=== PATIENT | female | born 1935 | race Caucasian/White ===

== ENCOUNTER 2016-09-15 16:57 | Inpatient (IN) | payer MEDICARE ==
--- NOTE | 2016-09-15 17:14 | ED Physician Chart ---
Chief Complaint/HPI - Patient Information Date Seen:: 09/15/16 Time Seen:: 17:09 Chief Complaint:: psych issue History of Present Illness:: pt was released from a board n care today...was dropped off at the curb of her old house. pt required firefighters from across the street to brayden her into her house due to physical disability...she was unable to climb stairs on her own. she had no food in the house that wasnt rotten. no bed or working toilet on 1st floor. no working heat. house is in poor condition. pt has no-one to help care for her and was signed on a psych hold by police after they determined she is unable to care for herself. only PMH listed is arthritis Allergies:: Allergies Allergy/AdvReac Type Severity Reaction Status Date / Time No Known Allergies Allergy Verified 09/15/16 16:58 Vitals:: Vital Signs - 8 hr 09/15/16 16:59 Temp 98.6 F HR 98 RR 16 BP 137/73 O2 Sat % 96 Historian:: Patient Review of Systems - Review of Systems General/Constitutional: No fever, No chills, No weight loss, No weakness, No diaphoresis, No edema, No loss of appetite Skin: No skin lesions, No rash, No bruising Head: No headache, No light-headedness Eyes: No loss of vision, No pain, No diplopia ENT: No earache, No nasal drainage, No sore throat, No tinnitus Neck: No neck pain, No swelling, No thyromegaly, No stiffness, No mass noted Cardio Vascular: No chest pain, No palpitations, No PND, No orthopnea, No edema Pulmonary: No SOB, No cough, No sputum, No wheezing GI: No nausea, No vomiting, No diarrhea, No pain, No melena, No hematochezia, No constipation, No hematemesis G/U: No dysuria, No frequency, No hematuria Musculoskeletal: No bone or joint pain, No back pain, No muscle pain Endocrine: No polyuria, No polydipsia Psychiatric: No prior psych history, No depression, No anxiety, No suicidal ideation Hematopoietic: No bruising, No lymphadenopathy Allergic/Immuno: No urticaria, No angioedema Neurological: No syncope, No focal symptoms, No weakness, No paresthesia, No headache, No seizure, No dizziness, No confusion, No vertigo Past Medical History - Past Medical History Past Medical History: Arthritis, Other (no known hx of cad/cva/htn/lipids/ dm...per pt) Social History: Care Facility (recent release today from [facility]) Medication: Reviewed Family Medical History - Family Member Mother History Unknown: Yes Physical Exam - Physical Examination General/Constitutional: Awake, Well-developed, well-nourished, Alert, No distress, GCS 15, Non-toxic appearing, Ambulatory Other Gen/Cons comments:: alert, talkative. very very slow gait w using walker..seems very unlikely pt could do steps wo assistance sev kyphosis Head: Atraumatic Eyes: Lids, conjuctiva normal, PERRL, EOMI Skin: Nl inspection, No rash, No skin lesions, No ecchymosis, Well hydrated, No lymphadenopathy ENMT: External ears, nose nl, Nasal exam nl, Lips, teeth, gums nl Neck: Nontender, Full ROM w/o pain, No JVD, No nuchal rigidity, No bruit, No mass, No stridor Respiratory: Nl effort/Exclusion, Clear to Auscultation, No Wheeze/Rhonchi/Rales Cardio Vascular: RRR, No murmur, gallop, rubs, NL S1 S2 GI: No tenderness/rebounding/guarding, No organomegaly, No hernia, Normal BS's, Nondistended, No mass/bruits, No McBurney tenderness : No CVA tenderness Extremities: No tenderness or effusion, Full ROM, normal strength in all extremities, No edema, Normal digits & nails Neuro/Psych: Alert/oriented, DTR's symmetric, Normal sensory exam, Normal motor strength, Judgement/insight normal, Mood normal, Normal gait, No focal deficits Misc: normal gait, Normal back, No paraspinal tenderness Labs/Radiology/EKG Results - Lab Results Results: Laboratory Tests 09/15/16 09/15/16 09/15/16 17:00 17:41 17:41 WBC 9.2 RBC 4.51 Hgb 13.4 Hct 40.8 MCV 90.5 MCH 29.8 MCHC Differential 32.9 RDW 13.2 Plt Count 246 MPV 7.5 Neutrophils % 83.0 H Lymphocytes % 13.2 L Monocytes % 2.7 Eosinophils % 0.3 Basophils % 0.8 Sodium 135 L Potassium 4.0 Chloride 109 H Carbon Dioxide 23.7 Anion Gap 6.3 L BUN 30 H Creatinine 0.6 Est GFR ( Amer) TNP Est GFR (Non-Af Amer) TNP BUN/Creatinine Ratio 50.0 Glucose 123 H Calcium 10.3 Total Bilirubin 0.5 AST 20 ALT 11 Alkaline Phosphatase 107 H Troponin I Total Protein 7.5 Albumin 4.4 Globulin 3.1 Albumin/Globulin Ratio 1.4 Triglycerides 94 Cholesterol 259 H LDL Cholesterol Direct 114 HDL Cholesterol 114 H TSH Urine Source CLEAN C Urine Color YELLOW Urine Clarity CLEAR Urine pH 7.0 Ur Specific [place] 1.020 Urine Protein 30 H Urine Glucose (UA) NEGATIVE Urine Ketones NEGATIVE Urine Blood NEGATIVE Urine Nitrate NEGATIVE Urine Bilirubin NEGATIVE Urine Urobilinogen 0.2 Ur Leukocyte Esterase SMALL H Urine RBC NONE SEEN Urine WBC 2-5 Ur Epithelial Cells NONE SEEN Urine Bacteria NONE SEEN 09/15/16 09/15/16 17:41 17:41 WBC RBC Hgb Hct MCV MCH MCHC Differential RDW Plt Count MPV Neutrophils % Lymphocytes % Monocytes % Eosinophils % Basophils % Sodium Potassium Chloride Carbon Dioxide Anion Gap BUN Creatinine Est GFR ( Amer) Est GFR (Non-Af Amer) BUN/Creatinine Ratio Glucose Calcium Total Bilirubin AST ALT Alkaline Phosphatase Troponin I < 0.01 L Total Protein Albumin Globulin Albumin/Globulin Ratio Triglycerides Cholesterol LDL Cholesterol Direct HDL Cholesterol TSH 0.82 Urine Source Urine Color Urine Clarity Urine pH Ur Specific [place] Urine Protein Urine Glucose (UA) Urine Ketones Urine Blood Urine Nitrate Urine Bilirubin Urine Urobilinogen Ur Leukocyte Esterase Urine RBC Urine WBC Ur Epithelial Cells Urine Bacteria - EKG Interpretations EKG Time:: 17:30 Rhythm: nsr [place]: -44 Rate: 94 Comments:: RtBBB ED Septic Shock - . Is Septic Shock (SBP<90, OR Lactate>4 mmol\L) present?: No - <6hrs of presentation: Vital Signs: Vital Signs - 8 hr 09/15/16 16:59 Temp 98.6 F HR 98 RR 16 BP 137/73 O2 Sat % 96 Reassessment (Disposition) - Reassessment Reassessment:: case rita macias...will admit Reassessment Condition:: Unchanged - Diagnosis Diagnosis:: 1 uti 2 unable to care for self at home 3 arthritis - Patient Disposition Admitted to:: Med/Surg Condition at Disposition:: Unchanged ED Discharge Plan - Patient Disposition Instructions: Psychosis
[2016-09-15 17:40] LABS: URINE BILIRUBIN NEGATIVE (NEGATIVE); URINE BLOOD NEGATIVE (NEGATIVE); URINE COLOR YELLOW; URINE GLUCOSE (UA) NEGATIVE (NEGATIVE); URINE KETONE NEGATIVE (NEGATIVE)
[2016-09-15 17:41] LABS: URINE BACTERIA NONE SEEN /hpf (NONE SEEN); URINE EPITHELIAL CELLS NONE SEEN /lpf (FEW); URINE PROTEIN 30 mg/dL (NEGATIVE); URINE RBC NONE SEEN /hpf (0-5); URINE UROBILINOGEN 0.2 E.U./dL (0.2 - 1.0)
[2016-09-15 17:50] LABS: % BASOPHILS 0.8 % (0.0-2.0); % EOSINOPHILS 0.3 % (0.0-5.0); % LYMPHOCYTES 13.2 % (20.0-50.0); % MONOCYTES 2.7 % (2.0-10.0); HEMATOCRIT 40.8 % (35.0-45.0); HEMOGLOBIN 13.4 gm/dL (11.7-16.1); MEAN CELL VOLUME 90.5 fl (81-100); MEAN CORPUSCULAR HEMOGLOBIN 29.8 pg (27.0-31.0); MEAN CORPUSCULAR HGB CONC 32.9 pg (28.0-36.0); MEAN PLATELET VOLUME 7.5 fl; NEUTROPHILE ABSOLUTE 7.7 Th/cmm (1.8-8.0); PLATELET COUNT 246 Th/cmm (150-400); RED BLOOD COUNT 4.51 Mil/cmm (3.80-5.20); RED CELL DISTRIBUTION WIDTH 13.2 % (11.5-20.0); WHITE BLOOD COUNT 9.2 Th/cmm (4.8-10.8)
[2016-09-15 18:02] LABS: ANION GAP 6.3 (7.0-16.0); BUN - UREA NITROGEN 30 mg/dL (7-25); CARBON DIOXIDE 23.7 mEq/L (21.0-31.0); CHLORIDE 109 mEq/L (98-107); CREATININE - SERUM 0.6 mg/dL (0.6-1.2); GLUCOSE 123 mg/dL (70-105); SODIUM SERUM 135 mEq/L (136-145)
[2016-09-15 18:03] LABS: ALB/GLOB RATIO 1.4 (1.0-1.8); ALKALINE PHOSPHATASE 107 U/L (34-104); BILIRUBIN,TOTAL 0.5 mg/dL (0.3-1.0); CALCIUM SERUM 10.3 mg/dL (8.6-10.3); CHOLESTEROL 259 mg/dL (<200); SGOT 20 U/L (13-39); SGPT/ALT 11 U/L (7-52); TRIGLYCERIDES 94 mg/dL (<150)
--- NOTE | 2016-09-15 20:41 | Admit Criteria Form ---
Admit Criteria Forms - Admit Criteria Diagnosis: PSYCHIATRIC DISORDERS Clinical Indications for Inpatient Care (Place 'X' for any and all applicable criteria): Ongoing inpatient care may be needed for ANY ONE of the following(1)(2)(3)(4)(6) (7)(8): [ ]I. Danger to self or others not manageable at lower level of care. [X]II. Grave disability (eg, inability to perform self care necessary at lower level of care) [ ]III. Agitation or inappropriate behavior interfering with care for primary condition (eg, attempting to discontinue lines or drains prematurely, unable to cooperate with respiratory care) [ ]IV. Severe disability or disorder indicated by ALL of the following: [ ]a) Severe behavioral health disorder-related symptoms or condition indicated by ANY ONE of the following: [ ]i) Severe problem with cognition, memory, judgment, or impulse control [ ]ii) Severe clinical manifestations (eg, hallucinations, delusions, other acute psychotic symptoms, dagmar, extreme agitation or anxiety) [ ]b) Patient management at lower level of care is not feasible until acute intervention or modification is initiated. Extended stay beyond goal length of stay for the primary condition may be indicated when ANY ONE of the following is present: (1)(2)(3)(4): [ ]a) Patient is a danger to self or others and not manageable at lower level of care. [ ]b) Behavior crisis management, including physical or chemical restraints, is required and is not available at a lower level of care. [ ]c) Behavioral symptoms (e.g., agitation, somnolence, inappropriate behavior) are present, and are not manageable at a lower level of care. [ ]d) Patient cannot understand follow-up treatment and crisis plan. [ ]e) Provider and supports are not sufficiently available at lower level of care. [ ]f) Patient cannot participate (e.g., verify absence of plan for harm) and is in needed of monitoring. The original [facility] [employer] content created by [facility] [employer] has been revised. The portions of the content which have been revised are identified through the use of italic text or in bold, and [facility] has neither reviewed nor approved the modified material. All other unmodified content is copyright [facility] [employer]. Please see references footnoted in the original [facility] edition 2016 Admit Criteria Met?: Yes
[2016-09-15 22:05] VITALS: BP 118/61
[2016-09-16 06:20] LABS: % BASOPHILS 0.6 % (0.0-2.0); % EOSINOPHILS 1.5 % (0.0-5.0); % LYMPHOCYTES 31.6 % (20.0-50.0); % MONOCYTES 10.9 % (2.0-10.0); % NEUTROPHILS 55.4 % (40.0-80.0); HEMOGLOBIN 11.5 gm/dL (11.7-16.1); MEAN CELL VOLUME 89.3 fl (81-100); MEAN CORPUSCULAR HEMOGLOBIN 30.8 pg (27.0-31.0); MEAN CORPUSCULAR HGB CONC 34.4 pg (28.0-36.0); MEAN PLATELET VOLUME 7.7 fl; NEUTROPHILE ABSOLUTE 4.4 Th/cmm (1.8-8.0); PLATELET COUNT 219 Th/cmm (150-400); RED BLOOD COUNT 3.74 Mil/cmm (3.80-5.20); RED CELL DISTRIBUTION WIDTH 13.4 % (11.5-20.0); WHITE BLOOD COUNT 7.7 Th/cmm (4.8-10.8)
[2016-09-16 06:21] LABS: HEMATOCRIT 33.4 % (35.0-45.0)
[2016-09-16 06:25] LABS: ALB/GLOB RATIO 1.5 (1.0-1.8); ALKALINE PHOSPHATASE 82 U/L (34-104); ANION GAP 8.8 (7.0-16.0); BILIRUBIN,TOTAL 0.5 mg/dL (0.3-1.0); BUN - UREA NITROGEN 34 mg/dL (7-25); BUN/CREATININE RATIO 56.7; CALCIUM SERUM 9.6 mg/dL (8.6-10.3); CHLORIDE 109 mEq/L (98-107); CREATININE - SERUM 0.6 mg/dL (0.6-1.2); GLUCOSE 98 mg/dL (70-105); POTASSIUM SERUM 3.8 mEq/L (3.5-5.1); SGOT 14 U/L (13-39); SGPT/ALT 10 U/L (7-52); SODIUM SERUM 140 mEq/L (136-145)
[2016-09-16] MEDS ORDERED: VTE Chemical Prophylaxis Screen/Admission MC PRN (08:30)
[2016-09-16] MEDS ORDERED: Non-Formulary Item 1 EA (Meloxicam [Meloxicam] 15 MG) PO SCH (09:00)
[2016-09-16] MEDS ORDERED: Multivitamin Tab PO SCH (09:00)
--- NOTE | 2016-09-16 09:00 | General Progress Note ---
Subjective - Review of Systems Service Date: 09/16/16 Subjective: I am fine Objective - Results Result Diagrams: 09/16/16 05:50 09/16/16 05:50 Recent Labs: Laboratory Last Values WBC 7.7 Th/cmm (4.8-10.8) 09/16/16 05:50 RBC 3.74 Mil/cmm (3.80-5.20) L 09/16/16 05:50 Hgb 11.5 gm/dL (11.7-16.1) L 09/16/16 05:50 Hct 33.4 % (35.0-45.0) L D 09/16/16 05:50 MCV 89.3 fl (81-100) 09/16/16 05:50 MCH 30.8 pg (27.0-31.0) 09/16/16 05:50 MCHC Differential 34.4 pg (28.0-36.0) 09/16/16 05:50 RDW 13.4 % (11.5-20.0) 09/16/16 05:50 Plt Count 219 Th/cmm (150-400) 09/16/16 05:50 MPV 7.7 fl 09/16/16 05:50 Neutrophils % 55.4 % (40.0-80.0) 09/16/16 05:50 Lymphocytes % 31.6 % (20.0-50.0) 09/16/16 05:50 Monocytes % 10.9 % (2.0-10.0) H 09/16/16 05:50 Eosinophils % 1.5 % (0.0-5.0) 09/16/16 05:50 Basophils % 0.6 % (0.0-2.0) 09/16/16 05:50 Sodium 140 mEq/L (136-145) 09/16/16 05:50 Potassium 3.8 mEq/L (3.5-5.1) 09/16/16 05:50 Chloride 109 mEq/L (98-107) H 09/16/16 05:50 Carbon Dioxide 26.0 mEq/L (21.0-31.0) 09/16/16 05:50 Anion Gap 8.8 (7.0-16.0) 09/16/16 05:50 BUN 34 mg/dL (7-25) H 09/16/16 05:50 Creatinine 0.6 mg/dL (0.6-1.2) 09/16/16 05:50 Est GFR ( Amer) TNP 09/16/16 05:50 Est GFR (Non-Af Amer) TNP 09/16/16 05:50 BUN/Creatinine Ratio 56.7 09/16/16 05:50 Glucose 98 mg/dL (70-105) 09/16/16 05:50 Calcium 9.6 mg/dL (8.6-10.3) 09/16/16 05:50 Total Bilirubin 0.5 mg/dL (0.3-1.0) 09/16/16 05:50 AST 14 U/L (13-39) 09/16/16 05:50 ALT 10 U/L (7-52) 09/16/16 05:50 Alkaline Phosphatase 82 U/L (34-104) 09/16/16 05:50 Troponin I < 0.01 ng/mL (0.01-0.05) L 09/15/16 17:41 Total Protein 6.0 gm/dL (6.0-8.3) 09/16/16 05:50 Albumin 3.6 gm/dL (3.7-5.3) L 09/16/16 05:50 Globulin 2.4 gm/dL 09/16/16 05:50 Albumin/Globulin Ratio 1.5 (1.0-1.8) 09/16/16 05:50 Triglycerides 94 mg/dL (<150) 09/15/16 17:41 Cholesterol 259 mg/dL (<200) H 09/15/16 17:41 LDL Cholesterol Direct 114 mg/dL (75-193) 09/15/16 17:41 HDL Cholesterol 114 mg/dL (23-92) H 09/15/16 17:41 TSH 0.82 uIU/ml (0.34-5.60) 09/15/16 17:41 Urine Source CLEAN C 09/15/16 17:00 Urine Color YELLOW 09/15/16 17:00 Urine Clarity CLEAR (CLEAR) 09/15/16 17:00 Urine pH 7.0 09/15/16 17:00 Ur Specific [place] 1.020 (1.005-1.030) 09/15/16 17:00 Urine Protein 30 mg/dL (NEGATIVE) H 09/15/16 17:00 Urine Glucose (UA) NEGATIVE mg/dL (NEGATIVE) 09/15/16 17:00 Urine Ketones NEGATIVE mg/dL (NEGATIVE) 09/15/16 17:00 Urine Blood NEGATIVE (NEGATIVE) 09/15/16 17:00 Urine Nitrate NEGATIVE (NEGATIVE) 09/15/16 17:00 Urine Bilirubin NEGATIVE (NEGATIVE) 09/15/16 17:00 Urine Urobilinogen 0.2 E.U./dL (0.2 - 1.0) 09/15/16 17:00 Ur Leukocyte Esterase SMALL (NEGATIVE) H 09/15/16 17:00 Urine RBC NONE SEEN /hpf (0-5) 09/15/16 17:00 Urine WBC 2-5 /hpf (0-5) 09/15/16 17:00 Ur Epithelial Cells NONE SEEN /lpf (FEW) 09/15/16 17:00 Urine Bacteria NONE SEEN /hpf (NONE SEEN) 09/15/16 17:00 - Physical Exam Vitals and I&O: Vital Signs Temp 98.3 F 09/16/16 04:00 Pulse 75 09/16/16 04:00 Resp 18 09/16/16 04:00 BP 130/60 09/16/16 04:00 Pulse Ox 97 09/16/16 04:00 Intake & Output 09/15/16 09/16/16 09/16/16 18:59 06:59 18:59 Intake Total 50 Balance 50 Intake: Oral 50 Other: # Voids 2 Stool Characteristics Soft Formed Active Medications: Current Medications Acetaminophen (Tylenol) 325 mg PO Q6HR PRN PRN Reason: Pain or Fever >101 Stop: 11/14/16 22:08 Last Admin: 09/15/16 23:15 Dose: 325 mg Ascorbic Acid (Vitamin C) 500 mg PO DAILY [facility] Stop: 11/15/16 08:59 Diclofenac Sodium (Voltaren) 25 mg PO BID DARREL Stop: 11/15/16 08:59 Heparin Sodium (Porcine) (Heparin) 5,000 units SUBQ Q12HR DARREL Stop: 11/15/16 08:59 Influenza Virus Vaccine (Fluarix) 0.5 ml IM .ONCE ONE Stop: 09/16/16 10:01 Miscellaneous (Vte Chemical Prophylaxis Screen/ Admission) 1 [facility] PRN PRN PRN Reason: PROTOCOL Stop: 11/15/16 08:29 Multivitamins/Vitamin C (Theragran) 1 tab PO DAILY [facility] Stop: 11/15/16 08:59 Pneumococcal Polyvalent Vaccine (Pneumovax) 0.5 ml IM .ONCE ONE Stop: 09/16/16 10:01 Quetiapine Fumarate (Seroquel) 25 mg PO HS DARREL PRN Reason: Protocol Stop: 11/15/16 20:59 Trimethoprim/Sulfamethoxazole (Bactrim Ds) 1 tab PO BID [facility] Stop: 11/15/16 08:59 General: Alert, Oriented x3, Cooperative, No acute distress HEENT: Atraumatic Neck: Supple Cardiovascular: Regular rate Lungs: Clear to auscultation Abdomen: Bowel sounds, Soft Extremities: Other (No edema) Neurological: Normal gait Skin: Other (Warm and dry) Psych/Mental Status: Mental status NL Assessment/Plan - Assessment Assessment: Patient is awke, alert, calm, in no acute distress. Dx: UTI, grave disability. - Plan Plan: Consul with SW and base manager are requested
[2016-09-16] MEDS: Sulfamethoxazole/TMP 800/160mg Tab PO SCH ×2 (09:34→17:00)
[2016-09-16] MEDS ORDERED: Pneumococcal Vaccine 0.5 mL Vial IM ONE (10:00)
[2016-09-16] MEDS ORDERED: Influenza Vaccine 0.5 mL Syr IM ONE (10:00)
[2016-09-16 10:25] LABS: HEP B CORE IGM Negative (Negative); HEP C ANTIBODY <0.1 s/co ratio (0.0-0.9)
--- NOTE | 2016-09-16 14:17 | History & Physical ---
CHIEF COMPLAINT: Safety issues. HISTORY OF PRESENT ILLNESS: This is a case of an 81-year-old female who was discharged from [facility] and care to her home. When the patient was left at home, she could not go in and firefighters to help her to go into the house. When firefighters went into the house, they found that she has had no food. She had walk-in toilet, no bed in the fifth floor and no ____. House was in really poor condition, reason why police was called and police ____ on psychological hold and ____ she was unable to care for herself. PAST MEDICAL HISTORY: The patient has past medical history of arthritis. SOCIAL HISTORY: The patient was recently discharged from a care facility. MEDICATIONS: Reviewed. FAMILY HISTORY: Unremarkable. ALLERGIES: No known allergies. PAST SURGICAL HISTORY: None. REVIEW OF SYSTEMS: LUNGS: The patient denies shortness of breath. HEART: The patient denies chest pain. ABDOMEN: Unremarkable. EXTREMITIES: The patient referred feeling weak and pain in both extremities. PHYSICAL EXAMINATION: GENERAL: Does reveal a fairly nourished and developed female, awake, alert, in no acute distress and ambulatory. LUNGS: Bilateral air entry. No wheezing, no crackles. HEART: Regular rate and rhythm. ABDOMEN: Soft, nontender, bowel sounds present. EXTREMITIES: No edema. Full movement of all extremities. NEUROLOGICAL: The patient is awake, alert, in no acute distress. Normal gait. No focal deficits. IMPRESSION: 1. Urinary tract infection. 2. Unable to care for herself. 3. Osteoarthritis. PLAN: 1. The patient will be admitted in the medical surgical floor. 2. Saline lock. 3. Regular diet. 4. CBC and CMP at a.m. 5. Consult with high school social science teacher. JOB# [id number]
== END 2016-09-16 21:40 | DRG 690 ==
LOC: ER 16:57 → MSI 20:00
PROVIDERS: ADMIT General Practice; ATTEND General Practice
DX: N39.0 Urinary tract infection, site not specified (principal); M19.90 Unspecified osteoarthritis, unspecified site
CPT/HCPCS: 36415-UA; 80053-TC; 80061-TC; 80074-90; 81001-TC; 84443-TC; 84484-TC; 85025-TC; 86592-TC; 90732; 93005; J1644; Z7610

== ENCOUNTER 2016-09-16 21:55 | Inpatient (IN) | payer MEDICARE ==
[2016-09-16 22:34] VITALS: BP 151/76
[2016-09-17] MEDS ORDERED: Maalox 30 mL Cup PO PRN (01:30)
[2016-09-17] MEDS ORDERED: Magnesium Hydroxide (MOM) 30 mL UDC PO PRN (01:32)
--- NOTE | 2016-09-17 08:27 | General Progress Note ---
Subjective - Review of Systems Service Date: 09/17/16 Subjective: I am OK. Objective - Physical Exam Vitals and I&O: Vital Signs Temp 97.9 F 09/16/16 22:20 Pulse 80 09/16/16 22:20 Resp 20 09/16/16 22:20 BP 151/76 09/16/16 22:34 Pulse Ox Active Medications: Current Medications Acetaminophen (Tylenol) 325 mg PO Q6HR PRN PRN Reason: Pain or Fever >101 Stop: 11/16/16 00:39 Al Hydrox/Mg Hydrox/Simethicone (Maalox) 30 ml PO Q4HR PRN PRN Reason: Reyez Stop: 11/16/16 01:29 Ascorbic Acid (Vitamin C) 500 mg PO DAILY [facility] Stop: 11/16/16 08:59 Lorazepam (Ativan) 0.5 mg PO Q6HR PRN; Protocol PRN Reason: Psychosis Stop: 11/16/16 01:08 Magnesium Hydroxide (Milk Of Magnesia) 30 ml PO HS PRN PRN Reason: Constipation Stop: 11/16/16 01:31 Miscellaneous (Meloxicam [Meloxicam]) 15 mg PO DAILY [facility]REL Stop: 11/16/16 08:59 Multivitamins/Vitamin C (Theragran) 1 tab PO DAILY [facility]REL Stop: 11/16/16 08:59 Petrolatum (Vaseline Oint) 1 appl TP TID [facility] Stop: 11/16/16 08:59 Quetiapine Fumarate (Seroquel) 25 mg PO HS DARREL PRN Reason: Protocol Stop: 11/16/16 20:59 General: Alert, Oriented x3, Cooperative, No acute distress HEENT: Atraumatic Neck: Supple Cardiovascular: Regular rate Lungs: Clear to auscultation Abdomen: Bowel sounds Extremities: Other (No ) Neurological: Normal tone (Unstable) Skin: Other (Warm and dry) Psych/Mental Status: Mental status NL Assessment/Plan - Assessment Assessment: Patient is awake, alert, calm, in no acute distress. Patient was admitted while a place is found. - Plan Plan: Will continue with psychiatry recommendations. Awaiting placement.
[2016-09-17] MEDS: Petrolatum (White) Oint 0.6 Oz Tube TP SCH ×3 (08:37→20:43)
[2016-09-17] MEDS: Multivitamin Tab PO SCH (08:37)
[2016-09-17] MEDS ORDERED: Non-Formulary Item 1 EA (Meloxicam [Meloxicam] 15 MG) PO SCH (09:00)
--- NOTE | 2016-09-18 03:19 | Psychosocial Evaluation ---
This is initial psychiatric evaluation here at [facility]. IDENTIFYING DATA: She is an 81-year-old female living alone. JUSTIFICATION FOR ADMISSION: She was brought in here on a 5150 for grave disability. The patient was found after being discharged from a board and care facility on the day, when she was placed in a hold. Apparently, patient was left by an employee of the board and care at the ____ fire fighters from across the street, had to physically carry the patient into the house. At that time, she was found that there was no bed in the house, that there were no working toilet on the first floor ____ home and that there was only rotten food in her refrigerator. CHIEF COMPLAINT: "I do not understand why I am here." HISTORY OF PRESENT ILLNESS: The patient is an 81-year-old female with no past psychiatric intervention, psychotropic ____, who was found in the street after an employee from the board and care left outside. She was then carried by the ____ [place] police station where she was found that she could not take care of herself in the conditions as noted above in the 5150. Today, on [id number] evaluation, the patient is slightly anxious, depressed because she finds herself in this situation. She reports that she has minimal support, she has a niece that she talks to, but she has minimal support and was wheelchair bound and difficult to get into her house. She has a lot of memory difficulties. She reports at times, there is some sadness and anxiety, especially with the uncertainty of her house and uncertainty of recently getting out of the hospital and medically stabilizing. She denies any suicidal or homicidal ideation and auditory or visual hallucinations. No hypomanic symptoms. No PTSD symptoms or OCD symptoms. PAST PSYCHIATRIC HISTORY: None. CURRENT MEDICAL CONDITIONS: Osteoarthritis. CURRENT MEDICATIONS: Include acetaminophen, ascorbic acid, Meloxicam, multivitamins and Seroquel 25 mg p.o. at bedtime. ALLERGIES TO MEDICATIONS: NKDA. FAMILY PSYCHIATRIC HISTORY: None. SOCIAL HISTORY: The patient is . She has no children. The only support system she has is a niece that lives in ____. She denies any current alcohol or drug use. Denies any illicit drug use. PHYSICAL EXAMINATION: Pending. MENTAL STATUS EXAMINATION: She is in her bed, wheelchair bound. She is calm, cooperative, has fair to limited hygiene, irritable mood, restricted affect, circumstantial, no suicidal or homicidal ideation, no evidence of psychosis. No evidence of delusions. Awake, alert x 2. Limited insight, judgment, impulse control. Very limited, impaired immediate, recent and remote memory. LABORATORY DATA: Pending. ASSESSMENT AND PLAN: The patient is an 81-year-old female who presents here anxious and depressed because of the recent changes in her living situation. The patient has obviously demonstrated some memory impairment that impairs her ability to provide herself with food, [facility] and clothing. It is at this point, unclear, her living situation that she was living before and also about how she had ____ herself from the board and care. However, pending Adult Protective Services to come and evaluate the patient's situation. In the meantime, due to the patient's memory impairment and inability to provide herself with food and [facility], we will continue to monitor and evaluate. PRIMARY DIAGNOSIS: Unspecified depressive disorder. SECONDARY DIAGNOSIS: Neurocognitive impairment, rule out Alzheimer's disease. MEDICAL DIAGNOSIS: Osteoarthritis. RECOMMENDATIONS: 1. We will continue with the hold. 2. We will discontinue Seroquel. 3. We will start Aricept 5 mg. 4. We will continue working with mental telehealth case manager for APS referral and to followup on the APS as has already have been submitted by the ____ police station. 5. We will contact the family member to obtain more ____ information and to assist with given situation outside the structured environment. 6. We will continue with group and individual therapy. 7. Plan was discussed in great detail with the nursing staff. DISCHARGE CRITERIA: Demonstrate euthymic mood, good safe environment, no suicidal or homicidal ideations, no evidence of psychosis. ADDENDUM: Labs: CBC with differential within normal limits. CMP within normal limits. UA within normal limits. Troponin negative. ESTIMATED STAY: Between 3-5 days. JOB# [id number]
[2016-09-18] MEDS: Multivitamin Tab PO SCH (08:56)
[2016-09-18] MEDS: Petrolatum (White) Oint 0.6 Oz Tube TP SCH ×3 (08:57→21:14)
--- NOTE | 2016-09-18 16:45 | General Progress Note ---
Subjective - Review of Systems Service Date: 09/18/16 Subjective: I am OK. Objective - Physical Exam Vitals and I&O: Vital Signs Temp 98.2 F 09/17/16 19:54 Pulse 84 09/17/16 19:54 Resp 19 09/17/16 19:54 BP 128/69 09/17/16 19:54 Pulse Ox 97 09/17/16 19:54 Intake & Output 09/17/16 09/18/16 09/18/16 18:59 06:59 18:59 Intake Total 850 240 Balance 850 240 Intake: Oral 850 240 Other: # Voids 2 1 Active Medications: Current Medications Acetaminophen (Tylenol) 325 mg PO Q6HR PRN PRN Reason: Pain or Fever >101 Stop: 11/16/16 00:39 Last Admin: 09/17/16 20:39 Dose: 325 mg Al Hydrox/Mg Hydrox/Simethicone (Maalox) 30 ml PO Q4HR PRN PRN Reason: Reyez Stop: 11/16/16 01:29 Ascorbic Acid (Vitamin C) 500 mg PO DAILY [facility] Stop: 11/16/16 08:59 Last Admin: 09/18/16 08:56 Dose: 500 mg Diclofenac Sodium (Voltaren) 25 mg PO BID [facility]ARREL Stop: 11/17/16 08:59 Last Admin: 09/18/16 16:21 Dose: 25 mg Lorazepam (Ativan) 0.5 mg PO Q6HR PRN; Protocol PRN Reason: Psychosis Stop: 11/16/16 01:08 Magnesium Hydroxide (Milk Of Magnesia) 30 ml PO HS PRN PRN Reason: Constipation Stop: 11/16/16 01:31 Multivitamins/Vitamin C (Theragran) 1 tab PO DAILY [facility] Stop: 11/16/16 08:59 Last Admin: 09/18/16 08:56 Dose: 1 tab Petrolatum (Vaseline Oint) 1 appl TP TID [facility]ARREL Stop: 11/16/16 08:59 Last Admin: 09/18/16 14:38 Dose: 1 appl Quetiapine Fumarate (Seroquel) 25 mg PO HS DARREL PRN Reason: Protocol Stop: 11/16/16 20:59 Last Admin: 09/17/16 20:32 Dose: 25 mg General: Alert, Oriented x3, Cooperative, No acute distress HEENT: Atraumatic Neck: Supple Cardiovascular: Regular rate Lungs: Clear to auscultation Abdomen: Bowel sounds, Soft Extremities: Other (No edema) Neurological: Other (Unstable gait) Skin: Other (Warm and dry) Psych/Mental Status: Mental status NL Assessment/Plan - Assessment Assessment: Patient is awake, alert, calm, in no acute distress. Patient was admitted while a place is found. - Plan Plan: Will continue with psychiatry recommendations. Awaiting placement.
--- NOTE | 2016-09-19 00:23 | Progress Notes ---
SUBJECTIVE: Patient of Dr. Ramirez. The patient is currently in the hospital, brought in on a 5150 hold, placed on a 14-day hold, apparently recent discharge from a board and care, could not climb stairs. There was rotten food in her refrigerator. She stated that she was going to use the oven to heat her home, home in very poor condition. There were concerns about her ability to utilize basic food, clothing and fci. On [id number], the patient remains symptomatic. She has no idea why she is here. She does not know if she is here in the hospital for aggression or agitation. She is pretty confused. Apparently, her house was in disarray. The patient has no idea of how to care for herself, concerns for a grave disability. Dr. Ramirez discontinued the Seroquel, started Aricept. ASSESSMENT: The patient remains pretty confused, symptomatic, concerns for grave disability, distracted on exam. PLAN: We will continue to monitor, continue Aricept. The patient is not safe for a lower level of care at this time and we are working with social welfare clerk to try to help the patient with placement. JOB# [id number]
[2016-09-19] MEDS: Multivitamin Tab PO SCH (10:01)
[2016-09-19] MEDS: Petrolatum (White) Oint 0.6 Oz Tube TP SCH ×3 (10:02→21:00)
--- NOTE | 2016-09-19 12:27 | General Progress Note ---
Subjective - Review of Systems Service Date: 09/19/16 Subjective: I have knee pain Objective - Physical Exam Vitals and I&O: Vital Signs Temp 97.1 F 09/19/16 06:43 Pulse 89 09/19/16 06:43 Resp 18 09/19/16 06:43 BP 147/64 09/19/16 06:43 Pulse Ox 97 09/19/16 06:43 Intake & Output 09/18/16 09/19/16 09/19/16 18:59 06:59 18:59 Intake Total 2400 Balance 2400 Intake: Oral 2400 Other: # Voids 3 2 # Bowel Movements 0 Active Medications: Current Medications Acetaminophen (Tylenol) 325 mg PO Q6HR PRN PRN Reason: Pain or Fever >101 Stop: 11/16/16 00:39 Last Admin: 09/17/16 20:39 Dose: 325 mg Al Hydrox/Mg Hydrox/Simethicone (Maalox) 30 ml PO Q4HR PRN PRN Reason: Reyez Stop: 11/16/16 01:29 Ascorbic Acid (Vitamin C) 500 mg PO DAILY DARREL Stop: 11/16/16 08:59 Last Admin: 09/19/16 10:01 Dose: 500 mg Diclofenac Sodium (Voltaren) 25 mg PO BID DARREL Stop: 11/17/16 08:59 Last Admin: 09/19/16 10:01 Dose: 25 mg Lorazepam (Ativan) 0.5 mg PO Q6HR PRN; Protocol PRN Reason: Psychosis Stop: 11/16/16 01:08 Magnesium Hydroxide (Milk Of Magnesia) 30 ml PO HS PRN PRN Reason: Constipation Stop: 11/16/16 01:31 Multivitamins/Vitamin C (Theragran) 1 tab PO DAILY DARREL Stop: 11/16/16 08:59 Last Admin: 09/19/16 10:01 Dose: 1 tab Petrolatum (Vaseline Oint) 1 appl TP TID DARREL Stop: 11/16/16 08:59 Last Admin: 09/19/16 10:02 Dose: 1 appl Quetiapine Fumarate (Seroquel) 25 mg PO HS DARREL PRN Reason: Protocol Stop: 11/16/16 20:59 Last Admin: 09/18/16 20:56 Dose: 25 mg General: Alert, Oriented x3, Cooperative, No acute distress HEENT: Atraumatic Neck: Supple Cardiovascular: Regular rate Lungs: Clear to auscultation Abdomen: Bowel sounds Extremities: Other (Pain at palpation in right knee) Neurological: Other (Unstable gait) Skin: Other (Warm and dry) Psych/Mental Status: Mental status NL Assessment/Plan - Assessment Assessment: Patient is awake, alert, calm, in no acute distress. Patient was admitted while a place is found. - Plan Plan: Will continue with psychiatry recommendations. Awaiting placement.
--- NOTE | 2016-09-19 19:40 | Progress Notes ---
Dr. Guerrero is covering for Dr. Ramirez. SUBJECTIVE: Chart reviewed and the patient interviewed. The patient is easily agitated and she is yelling and screaming. The patient also is forgetful and is confused. The patient also is still wandering around, but at the same time, she is doing it less than before because of knee pain. The patient also is still easily agitated and is still in angry and irritable mood during the interview. ASSESSMENT: The patient is still psychotic and agitated. TREATMENT PLAN: Continue monitoring her behavior and her condition closely. Also, continue to work on her irritability and anger and continue adjusting psychotropic medications. JOB# [id number]
[2016-09-20] MEDS: Multivitamin Tab PO SCH (08:13)
[2016-09-20] MEDS: Petrolatum (White) Oint 0.6 Oz Tube TP SCH ×3 (08:15→21:01)
--- NOTE | 2016-09-20 09:15 | General Progress Note ---
Subjective - Review of Systems Service Date: 09/20/16 Subjective: my knee pain is better. Objective - Physical Exam Vitals and I&O: Vital Signs Temp 98.1 F 09/20/16 05:44 Pulse 66 09/20/16 05:44 Resp 20 09/20/16 05:44 BP 136/61 09/20/16 05:44 Pulse Ox 96 09/20/16 05:44 Intake & Output 09/19/16 09/20/16 09/20/16 18:59 06:59 18:59 Intake Total 1600 120 Balance 1600 120 Intake: Oral 1600 120 Other: # Voids 3 1 # Bowel Movements 0 1 Active Medications: Current Medications Acetaminophen (Tylenol) 325 mg PO Q6HR PRN PRN Reason: Pain or Fever >101 Stop: 11/16/16 00:39 Last Admin: 09/19/16 21:02 Dose: 325 mg Al Hydrox/Mg Hydrox/Simethicone (Maalox) 30 ml PO Q4HR PRN PRN Reason: Reyez Stop: 11/16/16 01:29 Ascorbic Acid (Vitamin C) 500 mg PO DAILY DARREL Stop: 11/16/16 08:59 Last Admin: 09/20/16 08:13 Dose: 500 mg Diclofenac Sodium (Voltaren) 75 mg PO BID DARREL Stop: 11/17/16 08:59 Last Admin: 09/20/16 08:15 Dose: 75 mg Lorazepam (Ativan) 0.5 mg PO Q6HR PRN; Protocol PRN Reason: Psychosis Stop: 11/16/16 01:08 Last Admin: 09/20/16 08:16 Dose: 0.5 mg Magnesium Hydroxide (Milk Of Magnesia) 30 ml PO HS PRN PRN Reason: Constipation Stop: 11/16/16 01:31 Multivitamins/Vitamin C (Theragran) 1 tab PO DAILY DARREL Stop: 11/16/16 08:59 Last Admin: 09/20/16 08:13 Dose: 1 tab Petrolatum (Vaseline Oint) 1 appl TP TID DARREL Stop: 11/16/16 08:59 Last Admin: 09/20/16 08:15 Dose: 1 appl Prednisone (Deltasone) 10 mg PO BID DARREL Stop: 11/18/16 16:59 Last Admin: 09/20/16 08:13 Dose: 10 mg Quetiapine Fumarate (Seroquel) 25 mg PO HS DARREL PRN Reason: Protocol Stop: 11/16/16 20:59 Last Admin: 09/19/16 21:00 Dose: 25 mg General: Alert, Oriented x3, Cooperative, No acute distress HEENT: Atraumatic Neck: Supple Cardiovascular: Regular rate Lungs: Clear to auscultation Abdomen: Bowel sounds Extremities: Other (No edema) Neurological: Other (Unstable gait) Skin: Other (Warm and dry) Psych/Mental Status: Mental status NL Assessment/Plan - Assessment Assessment: Patient is awake, alert, calm, in no acute distress. Patient was admitted while a place is found. - Plan Plan: Will continue with psychiatry recommendations. Awaiting placement.
--- NOTE | 2016-09-20 23:02 | Admit Criteria Form ---
Admit Criteria Forms - Admit Criteria Diagnosis: PSYCHIATRIC DISORDERS Clinical Indications for Inpatient Care (Place 'X' for any and all applicable criteria): Ongoing inpatient care may be needed for ANY ONE of the following(1)(2)(3)(4)(6) (7)(8): [ ]I. Danger to self or others not manageable at lower level of care. [X]II. Grave disability (eg, inability to perform self care necessary at lower level of care) [ ]III. Agitation or inappropriate behavior interfering with care for primary condition (eg, attempting to discontinue lines or drains prematurely, unable to cooperate with respiratory care) [ ]IV. Severe disability or disorder indicated by ALL of the following: [ ]a) Severe behavioral health disorder-related symptoms or condition indicated by ANY ONE of the following: [ ]i) Severe problem with cognition, memory, judgment, or impulse control [ ]ii) Severe clinical manifestations (eg, hallucinations, delusions, other acute psychotic symptoms, dagmar, extreme agitation or anxiety) [ ]b) Patient management at lower level of care is not feasible until acute intervention or modification is initiated. Extended stay beyond goal length of stay for the primary condition may be indicated when ANY ONE of the following is present: (1)(2)(3)(4): [ ]a) Patient is a danger to self or others and not manageable at lower level of care. [ ]b) Behavior crisis management, including physical or chemical restraints, is required and is not available at a lower level of care. [ ]c) Behavioral symptoms (e.g., agitation, somnolence, inappropriate behavior) are present, and are not manageable at a lower level of care. [ ]d) Patient cannot understand follow-up treatment and crisis plan. [ ]e) Provider and supports are not sufficiently available at lower level of care. [ ]f) Patient cannot participate (e.g., verify absence of plan for harm) and is in needed of monitoring. The original [facility] [employer] content created by [facility] has been revised. The portions of the content which have been revised are identified through the use of italic text or in bold, and [facility] has neither reviewed nor approved the modified material. All other unmodified content is copyright [facility] [employer]. Please see references footnoted in the original [facility] edition 2016 Admit Criteria Met?: Yes
--- NOTE | 2016-09-21 00:41 | Progress Notes ---
SUBJECTIVE: The patient seen, chart reviewed, discussed with staff. The patient is currently in the hospital, grave disability, unable to care for her basic needs remains quiet, withdrawn, confused as to why she is here. She does not really know why she is here. She is fairly distracted, disoriented. However, she is calm, no agitation, no events. No combative behaviors; however, she does need prompting for ADLs, prompting for eating, unable to utilize basic food, clothing and jail. Per documentation, her house ____ and she was not able to care for herself and the were concerns about the living condition, therefore. ASSESSMENT: The patient remains withdrawn, continued concerns about her ability to care for her basic needs, disoriented times, wandering some yelling episodes. PLAN: We will continue to monitor. We will continue to adjust medications. Due to the severity of the patient's symptoms, she is not safe for discharge. [facility]# [id number]
--- NOTE | 2016-09-21 09:41 | General Progress Note ---
Subjective - Review of Systems Service Date: 09/21/16 Subjective: I do not fell fine. Objective - Physical Exam Vitals and I&O: Vital Signs Temp 97.8 F 09/21/16 06:23 Pulse 103 09/21/16 06:23 Resp 20 09/21/16 06:23 BP 148/88 09/21/16 06:23 Pulse Ox 91 09/21/16 06:23 Intake & Output 09/20/16 09/21/16 09/21/16 18:59 06:59 18:59 Intake Total 800 120 Balance 800 120 Intake: Oral 800 120 Other: # Voids 3 3 # Bowel Movements 0 0 Stool Characteristics Soft Formed Active Medications: Current Medications Acetaminophen (Tylenol) 325 mg PO Q6HR PRN PRN Reason: Pain or Fever >101 Stop: 11/16/16 00:39 Last Admin: 09/20/16 16:54 Dose: 325 mg Al Hydrox/Mg Hydrox/Simethicone (Maalox) 30 ml PO Q4HR PRN PRN Reason: Reyez Stop: 11/16/16 01:29 Ascorbic Acid (Vitamin C) 500 mg PO DAILY DARREL Stop: 11/16/16 08:59 Last Admin: 09/20/16 08:13 Dose: 500 mg Diclofenac Sodium (Voltaren) 75 mg PO BID DARREL Stop: 11/17/16 08:59 Last Admin: 09/20/16 16:53 Dose: 75 mg Lorazepam (Ativan) 0.5 mg PO Q6HR PRN; Protocol PRN Reason: Psychosis Stop: 11/16/16 01:08 Last Admin: 09/20/16 08:16 Dose: 0.5 mg Magnesium Hydroxide (Milk Of Magnesia) 30 ml PO HS PRN PRN Reason: Constipation Stop: 11/16/16 01:31 Multivitamins/Vitamin C (Theragran) 1 tab PO DAILY DARREL Stop: 11/16/16 08:59 Last Admin: 09/20/16 08:13 Dose: 1 tab Ondansetron HCl (Zofran Odt) 4 mg PO Q6H PRN PRN Reason: Nausea / Vomiting Stop: 11/20/16 06:55 Petrolatum (Vaseline Oint) 1 appl TP TID DARREL Stop: 11/16/16 08:59 Last Admin: 09/20/16 21:01 Dose: 1 appl Prednisone (Deltasone) 10 mg PO BID [facility] Stop: 11/18/16 16:59 Last Admin: 09/20/16 16:54 Dose: 10 mg Quetiapine Fumarate (Seroquel) 25 mg PO [facility] PRN Reason: Protocol Stop: 11/16/16 20:59 Last Admin: 09/20/16 20:56 Dose: 25 mg General: Alert, Oriented x3, Mild distress HEENT: Atraumatic Neck: Supple Cardiovascular: Regular rate Lungs: Clear to auscultation Abdomen: Bowel sounds, Soft, Other (There is a 2 cm protusion in left middle side of abdomen) Extremities: Other (no edema) Neurological: Other (unstable gait) Skin: Other (Warm and dry) Psych/Mental Status: Mental status NL Assessment/Plan - Assessment Assessment: Patient is awake, alert, in distress. Patient had a one vomit episode last nigh. Today no more vomit but has a protusion that cold be a intestinal torsion or a hernia. CT is order - Plan Plan: Will continue with psychiatry recommendations. Awaiting placement. CT is requested
[2016-09-21 10:10] LABS: MEAN CELL VOLUME 89.9 fl (81-100); MEAN CORPUSCULAR HEMOGLOBIN 29.9 pg (27.0-31.0); MEAN CORPUSCULAR HGB CONC 33.3 pg (28.0-36.0); MEAN PLATELET VOLUME 7.4 fl; RED BLOOD COUNT 4.98 Mil/cmm (3.80-5.20); RED CELL DISTRIBUTION WIDTH 13.5 % (11.5-20.0); WHITE BLOOD COUNT 7.9 Th/cmm (4.8-10.8)
[2016-09-21 10:20] LABS: HEMATOCRIT 44.8 % (35.0-45.0); HEMOGLOBIN 14.9 gm/dL (11.7-16.1); PLATELET COUNT 287 Th/cmm (150-400)
--- NOTE | 2016-09-21 10:42 | Diagnostic Imaging Report ---
CT abdomen and pelvis without intravenous contrast Indication: Abdominal pain, possible hernia Comparison: None, Technique: Axial images were obtained from the lung bases to the bilateral proximal femurs without IV contrast. Coronal reconstructions were made. total DLP: 253, CTDI5.7 FINDINGS: Atelectatic changes of the lung bases are seen. Chronic lung changes are noted. Assessment of the solid organs is limited due to lack of IV contrast. Punctate hepatic granulomas are noted. Splenic granulomas are also noted. There is suboptimal evaluation of pancreas. No discrete focal lesions identified. The adrenal glands are poorly visualized. No evidence of hydronephrosis or renal stones. Distal fecal impaction is seen. Uterine calcifications are seen likely due to fibroids. There is a ventral focal moderate size abdominal hernia with narrowed opening and protrusion of dilated bowel loop with surrounding mild free fluid. There are also multiple distended loops of small bowel with air-fluid levels. Copious stool is noted. No evidence of free abdominal air this time. Moderate atherosclerosis is noted. Advanced degenerative changes of the spine and pelvis are noted. An old displaced right femoral neck fracture is noted. Spinal scoliosis is noted. IMPRESSION: Focal narrow base midline ventral hernia containing a dilated loop of bowel with small amount of surrounding fluid. There are also multiple distended loops of small bowel with multiple air-fluid levels. Findings are most suggestive of a small bowel obstruction and possible early strangulation due to the hernia. No evidence of free abdominal air. Clinical correlation and surgical consultation is recommended. Copious stool throughout the colon with distal thecal and packed. Moderate atherosclerotic vascular disease Old displaced right femoral neck fracture.
[2016-09-21 10:49] LABS: BAND NEUTROPHILE 9 % (0-10); NEUTROPHILS 78 % (40-80); TOTAL CELLS COUNTED 100
[2016-09-21 10:50] LABS: PLATELET ESTIMATE ADEQUATE (NORMAL); PLATELET MORPHOLOGY NORMAL (NORMAL)
[2016-09-21] MEDS ORDERED: Sodium Chloride 0.9% 1,000 ML IV SCH (12:00)
[2016-09-21] MEDS: Petrolatum (White) Oint 0.6 Oz Tube TP SCH (12:05)
[2016-09-21] MEDS: Multivitamin Tab PO SCH (12:05)
[2016-09-21 12:12] LABS: ALB/GLOB RATIO 1.2 (1.0-1.8); ALKALINE PHOSPHATASE 94 U/L (34-104); ANION GAP 16.7 (7.0-16.0); BILIRUBIN,TOTAL 0.5 mg/dL (0.3-1.0); BUN - UREA NITROGEN 38 mg/dL (7-25); BUN/CREATININE RATIO 54.3; CALCIUM SERUM 10.8 mg/dL (8.6-10.3); CARBON DIOXIDE 23.4 mEq/L (21.0-31.0); CHLORIDE 101 mEq/L (98-107); CREATININE - SERUM 0.7 mg/dL (0.6-1.2); GLUCOSE 172 mg/dL (70-105); POTASSIUM SERUM 4.1 mEq/L (3.5-5.1); SGOT 18 U/L (13-39); SGPT/ALT 12 U/L (7-52); SODIUM SERUM 137 mEq/L (136-145)
[2016-09-21] MEDS ORDERED: LEVOFLOXACIN IV ONE (20:05)
--- NOTE | 2016-09-22 03:31 | Progress Notes ---
SUBJECTIVE: The patient seen, chart reviewed, discussed with staff. The patient remains symptomatic, confused, disoriented, unable to care for her basic needs. When I asked her where she is going to go and when she leaves the hospital, she states "I don't know." Very withdrawn, complaining of some abdominal pain. A CT scan has been completed and we are currently pending results. The patient is noted to be withdrawn, isolative. ASSESSMENT: The patient remains disoriented and confused, unable to utilize basic food, clothing and care home, disorganized, needing prompting for ADLs and prompting for eating. PLAN: Continue to monitor, awaiting results of the CT scan, so continue to monitor closely at this time. Continue medications at current dose. [facility]# [id number]
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
== END 2016-09-21 14:29 | disposition short-term general hospital (02) | DRG 881 ==
LOC: GERO 21:55
PROVIDERS: ADMIT Psychiatry & Neurology Psychiatry; ATTEND Psychiatry & Neurology Psychiatry
DX: F32.9 Major depressive disorder, single episode, unspecified (principal); F68.8 Other specified disorders of adult personality and behavior; M19.90 Unspecified osteoarthritis, unspecified site
CPT/HCPCS: 36415-UA; 80053-TC; 85007-TC; 85027-TC; 97530; J0360; J1956; Z7610

== ENCOUNTER 2016-09-21 14:40 | Inpatient (IN) | payer MEDICARE ==
[2016-09-21] MEDS: HYDROmorphone 1 mg/mL 1mL Syr IVP PRN (17:22)
[2016-09-21 17:42] LABS: % BASOPHILS 0.6 % (0.0-2.0); % EOSINOPHILS 0.5 % (0.0-5.0); % LYMPHOCYTES 15.3 % (20.0-50.0); % MONOCYTES 5.7 % (2.0-10.0); % NEUTROPHILS 77.9 % (40.0-80.0); HEMATOCRIT 44.1 % (35.0-45.0); HEMOGLOBIN 14.7 gm/dL (11.7-16.1); MEAN CELL VOLUME 89.7 fl (81-100); MEAN CORPUSCULAR HEMOGLOBIN 29.8 pg (27.0-31.0); MEAN CORPUSCULAR HGB CONC 33.2 pg (28.0-36.0); MEAN PLATELET VOLUME 7.2 fl; NEUTROPHILE ABSOLUTE 5.4 Th/cmm (1.8-8.0); PLATELET COUNT 315 Th/cmm (150-400); RED BLOOD COUNT 4.92 Mil/cmm (3.80-5.20); RED CELL DISTRIBUTION WIDTH 13.6 % (11.5-20.0); WHITE BLOOD COUNT 6.9 Th/cmm (4.8-10.8)
[2016-09-21 18:05] LABS: ALB/GLOB RATIO 1.1 (1.0-1.8); ALKALINE PHOSPHATASE 90 U/L (34-104); ANION GAP 15.2 (7.0-16.0); BILIRUBIN,TOTAL 0.6 mg/dL (0.3-1.0); BUN - UREA NITROGEN 41 mg/dL (7-25); BUN/CREATININE RATIO 68.3; CALCIUM SERUM 10.6 mg/dL (8.6-10.3); CARBON DIOXIDE 23.2 mEq/L (21.0-31.0); CHLORIDE 103 mEq/L (98-107); CREATININE - SERUM 0.6 mg/dL (0.6-1.2); GLUCOSE 153 mg/dL (70-105); POTASSIUM SERUM 4.4 mEq/L (3.5-5.1); SGOT 19 U/L (13-39); SGPT/ALT 12 U/L (7-52); SODIUM SERUM 137 mEq/L (136-145)
--- NOTE | 2016-09-21 18:46 | History & Physical ---
REFERRING PHYSICIAN: Dr. Mack. REASON FOR CONSULTATION: Bowel obstruction. Thank you for referring this patient to me. HISTORY OF PRESENT ILLNESS: This is an 81-year-old female who apparently has been residing at residential facility for 3 months. Because she ____, the patient was sent back to her home. A few days ago it was discovered that she had no functioning toilet and she could not go up and down the stairs. She was then admitted to [facility] and from there because of an incarcerated abdominal hernia with CT scan showing bowel obstruction, the patient was transferred to the Med/Surg unit. The niece was called over the phone regarding the patient's surgical need and when ____ come back, an emergency surgical procedure will need to be performed as soon as possible. The patient may sign her consent willingly and if not 2 physicians may need to sign the medical need for the operation. The niece understands the situation and will proceed when tests all come back. [facility]# [id number]
[2016-09-21] MEDS ORDERED: Midazolam 1mg/ml 2 ml vial IV ONE (19:14)
[2016-09-21] MEDS ORDERED: fentaNYL Citrate 100 mcg/2mL Vial ONE (19:14)
[2016-09-21] MEDS ORDERED: metroNIDAZOLE 500mg/NS 100mL 500 MG/100 ML BAG IV ONE ×2 (19:38→22:51)
[2016-09-21] MEDS ORDERED: Bupivacaine 0.25% W/Ep 10 mL Vial ONE ×2 (19:44)
[2016-09-21] MEDS ORDERED: Meperidine 25 mg/mL 1mL Syr IVP PRN (19:47)
[2016-09-21] MEDS ORDERED: Lactated Ringer 1,000 ML IV SCH (20:00)
[2016-09-21] MEDS ORDERED: Piperacillin Sodium/Tazobact 3.375 gm Vial IV ONE (20:08)
[2016-09-21] MEDS ORDERED: Lidocaine 2% Gel 5 mL TP ONE (20:10)
[2016-09-21] MEDS ORDERED: metroNIDAZOLE 500mg/NS 100mL 500 MG in Premix Fluid 1 BAG IV SCH (20:30)
--- NOTE | 2016-09-21 21:36 | Operative Report ---
PREOPERATIVE DIAGNOSIS: Strangulated ventral hernia. POSTOPERATIVE DIAGNOSIS: Strangulated ventral hernia. OPERATION DONE: Exploration with: 1. Resection of small bowel with [id number]-tt-[id number] anastomosis. 2. Lysis of adhesions. 3. Repair of ventral hernia. SURGEON: Dr. Fely Jeter. ANESTHESIA: General. ANESTHESIOLOGIST: Dr. Beckham. ESTIMATED BLOOD LOSS: 10 mL. OPERATIVE FINDINGS: Strangulated small bowel with ischemia requiring resection. DESCRIPTION OF PROCEDURE: The patient was given general anesthesia. The abdomen was prepped with ChloraPrep and draped in appropriate manner. An incision was made along the midline vertically. Bleeders were coagulated. The sac was identified and this was opened and strangulated small bowel was evident. Adhesion around the sac was lysed and the fascia was divided on the left side. This allowed freeing of the strangulated small bowel. Because of the ischemia present, a portion was transected about 4 inches and a [id number] anastomosis was performed utilizing stapling device. The staple line was reinforced with running suture of 3-0 silk. Following satisfactory hemostasis, the bowel was dropped back into the abdominal cavity, and the fascia was repaired utilizing [id number] suture of #1 PDS. Cultures were taken from the divided small bowel and the operative site was reprepped with Betadine. Incision was closed with running suture of 3-0 Vicryl for the subcutaneous tissues and the skin was closed with subcuticular suture of 4-0 Vicryl. The patient tolerated the procedure well and sent to ICU for postoperative care. JOB# [id number]
[2016-09-21] MEDS: Sodium Chloride 0.9% 1,000 ML IV SCH (22:34)
--- NOTE | 2016-09-22 00:43 | Admit Criteria Form ---
Admit Criteria Forms - Admit Criteria Admit Criteria Met?: Yes
[2016-09-22] MEDS: HYDROmorphone 1 mg/mL 1mL Syr IVP PRN ×3 (01:01→23:42)
[2016-09-22] MEDS ORDERED: metroNIDAZOLE 500mg/NS 100mL 500 MG/100 ML BAG IV ONE (04:41)
[2016-09-22] MEDS: metroNIDAZOLE 500mg/NS 100mL 500 MG/100 ML BAG IV SCH ×3 (06:01→21:34)
[2016-09-22 06:17] LABS: MEAN CELL VOLUME 90.6 fl (81-100); MEAN CORPUSCULAR HEMOGLOBIN 30.4 pg (27.0-31.0); MEAN CORPUSCULAR HGB CONC 33.5 pg (28.0-36.0); MEAN PLATELET VOLUME 8.1 fl; RED BLOOD COUNT 4.08 Mil/cmm (3.80-5.20); RED CELL DISTRIBUTION WIDTH 13.7 % (11.5-20.0)
[2016-09-22 06:44] LABS: HEMATOCRIT 36.9 % (35.0-45.0); HEMOGLOBIN 12.4 gm/dL (11.7-16.1)
[2016-09-22 06:45] LABS: ALB/GLOB RATIO 1.2 (1.0-1.8); ALKALINE PHOSPHATASE 61 U/L (34-104); ANION GAP 11.6 (7.0-16.0); BILIRUBIN,TOTAL 0.7 mg/dL (0.3-1.0); BUN - UREA NITROGEN 31 mg/dL (7-25); BUN/CREATININE RATIO 51.7; CALCIUM SERUM 8.8 mg/dL (8.6-10.3); CARBON DIOXIDE 22.9 mEq/L (21.0-31.0); CHLORIDE 110 mEq/L (98-107); CREATININE - SERUM 0.6 mg/dL (0.6-1.2); GLUCOSE 147 mg/dL (70-105); PLATELET COUNT 241 Th/cmm (150-400); POTASSIUM SERUM 3.5 mEq/L (3.5-5.1); SGOT 14 U/L (13-39); SGPT/ALT 9 U/L (7-52); SODIUM SERUM 141 mEq/L (136-145)
[2016-09-22] MEDS: Sodium Chloride 0.9% 1,000 ML IV SCH ×2 (08:39→13:35)
[2016-09-22 09:09] LABS: BAND NEUTROPHILE 17 % (0-10); NEUTROPHILS 59 % (40-80); TOTAL CELLS COUNTED 100
[2016-09-22 09:10] LABS: PLATELET ESTIMATE ADEQUATE (NORMAL); PLATELET MORPHOLOGY NORMAL (NORMAL)
--- NOTE | 2016-09-22 09:13 | General Progress Note ---
Subjective - Review of Systems Service Date: 09/22/16 Subjective: I feel better Objective - Results Result Diagrams: 09/22/16 05:09 09/22/16 05:09 Recent Labs: Laboratory Last Values WBC 7.0 Th/cmm (4.8-10.8) 09/22/16 05:09 RBC 4.08 Mil/cmm (3.80-5.20) 09/22/16 05:09 Hgb 12.4 gm/dL (11.7-16.1) D 09/22/16 05:09 Hct 36.9 % (35.0-45.0) D 09/22/16 05:09 MCV 90.6 fl (81-100) 09/22/16 05:09 MCH 30.4 pg (27.0-31.0) 09/22/16 05:09 MCHC Differential 33.5 pg (28.0-36.0) 09/22/16 05:09 RDW 13.7 % (11.5-20.0) 09/22/16 05:09 Plt Count 241 Th/cmm (150-400) D 09/22/16 05:09 MPV 8.1 fl 09/22/16 05:09 Neutrophils % 77.9 % (40.0-80.0) 09/21/16 17:35 Lymphocytes % 15.3 % (20.0-50.0) L 09/21/16 17:35 Monocytes % 5.7 % (2.0-10.0) 09/21/16 17:35 Eosinophils % 0.5 % (0.0-5.0) 09/21/16 17:35 Basophils % 0.6 % (0.0-2.0) 09/21/16 17:35 Sodium 141 mEq/L (136-145) 09/22/16 05:09 Potassium 3.5 mEq/L (3.5-5.1) 09/22/16 05:09 Chloride 110 mEq/L (98-107) H 09/22/16 05:09 Carbon Dioxide 22.9 mEq/L (21.0-31.0) 09/22/16 05:09 Anion Gap 11.6 (7.0-16.0) 09/22/16 05:09 BUN 31 mg/dL (7-25) H 09/22/16 05:09 Creatinine 0.6 mg/dL (0.6-1.2) 09/22/16 05:09 Est GFR ( Amer) TNP 09/22/16 05:09 Est GFR (Non-Af Amer) TNP 09/22/16 05:09 BUN/Creatinine Ratio 51.7 09/22/16 05:09 Glucose 147 mg/dL (70-105) H 09/22/16 05:09 Calcium 8.8 mg/dL (8.6-10.3) 09/22/16 05:09 Total Bilirubin 0.7 mg/dL (0.3-1.0) 09/22/16 05:09 AST 14 U/L (13-39) 09/22/16 05:09 ALT 9 U/L (7-52) 09/22/16 05:09 Alkaline Phosphatase 61 U/L (34-104) 09/22/16 05:09 Total Protein 6.2 gm/dL (6.0-8.3) 09/22/16 05:09 Albumin 3.4 gm/dL (3.7-5.3) L 09/22/16 05:09 Globulin 2.8 gm/dL 09/22/16 05:09 Albumin/Globulin Ratio 1.2 (1.0-1.8) 09/22/16 05:09 - Physical Exam Vitals and I&O: Vital Signs Temp 98.6 F 09/22/16 06:00 Pulse 95 09/22/16 06:00 Resp 20 09/22/16 06:00 BP 109/52 09/22/16 06:00 Pulse Ox 98 09/22/16 06:00 Intake & Output 09/21/16 09/22/16 09/22/16 18:59 06:59 18:59 Intake Total 100 Output Total 600 Balance -500 Intake: Intake, IV Amount 100 metroNIDAZOLE 500mg/NS 100 100mL 500 mg In Premix Fluid 1 bag @ 100 mls/hr IV Q8H DARREL Rx#:[id number] Oral 0 Output: Urine 600 Stool 0 Other: # Bowel Movements 0 Active Medications: Current Medications Hydromorphone HCl (Dilaudid) 1 mg IVP Q6HR PRN PRN Reason: Pain or Fever >101 Stop: 11/20/16 15:54 Last Admin: 09/22/16 06:07 Dose: 1 mg Sodium Chloride (Nacl 0.9%) 1,000 mls @ 75 mls/hr IV .[id number] [facility] Stop: 11/20/16 15:55 Last Admin: 09/22/16 08:39 Dose: Not Given Lactated Ringer's (Lactated Ringer) 1,000 mls @ 0 mls/hr IV .Q0M [facility] PRN Reason: TKO Stop: 09/22/16 19:59 Metronidazole (Flagyl) 500 mg in 100 mls @ 100 mls/hr IV Q8HR [facility] Stop: 11/21/16 05:59 Last Admin: 09/22/16 06:01 Dose: 100 mls/hr General: Alert, Oriented x3, Cooperative, No acute distress HEENT: Atraumatic Neck: Supple Cardiovascular: Regular rate Lungs: Clear to auscultation Abdomen: Bowel sounds, Soft, Other (Surgical wound cover, clean, no drainage) Neurological: Other (Non ambulatory at this moment) Skin: Other (Warm and dry) Psych/Mental Status: Mental status NL Assessment/Plan - Assessment Assessment: Patient is awake, alert, calm, in no acute distress. Dx: S/P incarcerated ventral hernia - Plan Plan: Patient had surgery, seem much better. Will continue same management.
--- NOTE | 2016-09-22 09:41 | Diagnostic Imaging Report ---
CHEST X-RAY: AP view INDICATION: Cough, preop COMPARISON: None FINDINGS: Chronic lung changes are seen with vessel on end versus small granuloma the right lung base. Right basal pleural thickening versus small right effusion is noted. There is prominent soft tissue density seen along the upper right mediastinum with leftward mass effect upon the trachea. No focal consolidation identified. Heart size is at the upper limits of normal. Atherosclerosis is noted. Degenerative changes spine are noted with scoliosis. IMPRESSION: Chronic lung changes with no focal consolidation identified. Right basal pleural thickening versus small right effusion. Prominent soft tissue density seen along the right upper mediastinal region with mass effect and leftward tracheal shift. Findings may be due to an enlarged thyroid gland. Other mediastinal mass lesions cannot be excluded. Please correlate with clinical history and old exams, if available. Otherwise, CT of the chest, preferably with IV contrast is recommended for further assessment. Atherosclerotic vascular disease.
--- NOTE | 2016-09-22 11:07 | General Progress Note ---
Subjective - Review of Systems Service Date: 09/22/16 Events since last encounter: labs OK VS stable Objective - Results Result Diagrams: 09/22/16 05:09 09/22/16 05:09 Recent Labs: Laboratory Last Values WBC 7.0 Th/cmm (4.8-10.8) 09/22/16 05:09 RBC 4.08 Mil/cmm (3.80-5.20) 09/22/16 05:09 Hgb 12.4 gm/dL (11.7-16.1) D 09/22/16 05:09 Hct 36.9 % (35.0-45.0) D 09/22/16 05:09 MCV 90.6 fl (81-100) 09/22/16 05:09 MCH 30.4 pg (27.0-31.0) 09/22/16 05:09 MCHC Differential 33.5 pg (28.0-36.0) 09/22/16 05:09 RDW 13.7 % (11.5-20.0) 09/22/16 05:09 Plt Count 241 Th/cmm (150-400) D 09/22/16 05:09 MPV 8.1 fl 09/22/16 05:09 Neutrophils % 77.9 % (40.0-80.0) 09/21/16 17:35 Band Neutrophils % 17 % (0-10) H 09/22/16 05:09 Lymphocytes % 15.3 % (20.0-50.0) L 09/21/16 17:35 Monocytes % 5.7 % (2.0-10.0) 09/21/16 17:35 Eosinophils % 0.5 % (0.0-5.0) 09/21/16 17:35 Basophils % 0.6 % (0.0-2.0) 09/21/16 17:35 Neutrophils (Manual) 59 % (40-80) 09/22/16 05:09 Lymphocytes 11 % (20-50) L 09/22/16 05:09 Monocytes 13 % (2-10) H 09/22/16 05:09 Platelet Estimate ADEQUATE (NORMAL) 09/22/16 05:09 Platelet Morphology NORMAL (NORMAL) 09/22/16 05:09 RBC Morph Micro Appear NORMAL (NORMAL) 09/22/16 05:09 Sodium 141 mEq/L (136-145) 09/22/16 05:09 Potassium 3.5 mEq/L (3.5-5.1) 09/22/16 05:09 Chloride 110 mEq/L (98-107) H 09/22/16 05:09 Carbon Dioxide 22.9 mEq/L (21.0-31.0) 09/22/16 05:09 Anion Gap 11.6 (7.0-16.0) 09/22/16 05:09 BUN 31 mg/dL (7-25) H 09/22/16 05:09 Creatinine 0.6 mg/dL (0.6-1.2) 09/22/16 05:09 Est GFR ( Amer) TNP 09/22/16 05:09 Est GFR (Non-Af Amer) TNP 09/22/16 05:09 BUN/Creatinine Ratio 51.7 09/22/16 05:09 Glucose 147 mg/dL (70-105) H 09/22/16 05:09 Calcium 8.8 mg/dL (8.6-10.3) 09/22/16 05:09 Total Bilirubin 0.7 mg/dL (0.3-1.0) 09/22/16 05:09 AST 14 U/L (13-39) 09/22/16 05:09 ALT 9 U/L (7-52) 09/22/16 05:09 Alkaline Phosphatase 61 U/L (34-104) 09/22/16 05:09 Total Protein 6.2 gm/dL (6.0-8.3) 09/22/16 05:09 Albumin 3.4 gm/dL (3.7-5.3) L 09/22/16 05:09 Globulin 2.8 gm/dL 09/22/16 05:09 Albumin/Globulin Ratio 1.2 (1.0-1.8) 09/22/16 05:09 - Physical Exam Vitals and I&O: Vital Signs Temp 98.6 F 09/22/16 06:00 Pulse 95 09/22/16 06:00 Resp 20 09/22/16 06:00 BP 109/52 09/22/16 06:00 Pulse Ox 98 09/22/16 06:00 Intake & Output 09/21/16 09/22/16 09/22/16 18:59 06:59 18:59 Intake Total 100 Output Total 600 Balance -500 Intake: Intake, IV Amount 100 metroNIDAZOLE 500mg/NS 100 100mL 500 mg In Premix Fluid 1 bag @ 100 mls/hr IV Q8H [facility] Rx#:[id number] Oral 0 Output: Urine 600 Stool 0 Other: # Bowel Movements 0 Active Medications: Current Medications Hydromorphone HCl (Dilaudid) 1 mg IVP Q6HR PRN PRN Reason: Pain or Fever >101 Stop: 11/20/16 15:54 Last Admin: 09/22/16 06:07 Dose: 1 mg Sodium Chloride (Nacl 0.9%) 1,000 mls @ 75 mls/hr IV .[id number] [facility] Stop: 11/20/16 15:55 Last Admin: 09/22/16 08:39 Dose: Not Given Metronidazole (Flagyl) 500 mg in 100 mls @ 100 mls/hr IV Q8HR [facility] Stop: 11/21/16 05:59 Last Admin: 09/22/16 06:01 Dose: 100 mls/hr
--- NOTE | 2016-09-22 22:09 | Admit Criteria Form ---
Admit Criteria Forms - Admit Criteria Admit Criteria Met?: Yes
[2016-09-23] MEDS: Sodium Chloride 0.9% 1,000 ML IV SCH ×2 (05:53→21:50)
[2016-09-23] MEDS: metroNIDAZOLE 500mg/NS 100mL 500 MG/100 ML BAG IV SCH ×3 (05:53→21:52)
--- NOTE | 2016-09-23 08:55 | General Progress Note ---
Subjective - Review of Systems Service Date: 09/23/16 Subjective: I have knee pain Objective - Results Result Diagrams: 09/22/16 05:09 09/22/16 05:09 Recent Labs: Laboratory Last Values WBC 7.0 Th/cmm (4.8-10.8) 09/22/16 05:09 RBC 4.08 Mil/cmm (3.80-5.20) 09/22/16 05:09 Hgb 12.4 gm/dL (11.7-16.1) D 09/22/16 05:09 Hct 36.9 % (35.0-45.0) D 09/22/16 05:09 MCV 90.6 fl (81-100) 09/22/16 05:09 MCH 30.4 pg (27.0-31.0) 09/22/16 05:09 MCHC Differential 33.5 pg (28.0-36.0) 09/22/16 05:09 RDW 13.7 % (11.5-20.0) 09/22/16 05:09 Plt Count 241 Th/cmm (150-400) D 09/22/16 05:09 MPV 8.1 fl 09/22/16 05:09 Neutrophils % 77.9 % (40.0-80.0) 09/21/16 17:35 Band Neutrophils % 17 % (0-10) H 09/22/16 05:09 Lymphocytes % 15.3 % (20.0-50.0) L 09/21/16 17:35 Monocytes % 5.7 % (2.0-10.0) 09/21/16 17:35 Eosinophils % 0.5 % (0.0-5.0) 09/21/16 17:35 Basophils % 0.6 % (0.0-2.0) 09/21/16 17:35 Neutrophils (Manual) 59 % (40-80) 09/22/16 05:09 Lymphocytes 11 % (20-50) L 09/22/16 05:09 Monocytes 13 % (2-10) H 09/22/16 05:09 Platelet Estimate ADEQUATE (NORMAL) 09/22/16 05:09 Platelet Morphology NORMAL (NORMAL) 09/22/16 05:09 RBC Morph Micro Appear NORMAL (NORMAL) 09/22/16 05:09 Sodium 141 mEq/L (136-145) 09/22/16 05:09 Potassium 3.5 mEq/L (3.5-5.1) 09/22/16 05:09 Chloride 110 mEq/L (98-107) H 09/22/16 05:09 Carbon Dioxide 22.9 mEq/L (21.0-31.0) 09/22/16 05:09 Anion Gap 11.6 (7.0-16.0) 09/22/16 05:09 BUN 31 mg/dL (7-25) H 09/22/16 05:09 Creatinine 0.6 mg/dL (0.6-1.2) 09/22/16 05:09 Est GFR ( Amer) TNP 09/22/16 05:09 Est GFR (Non-Af Amer) TNP 09/22/16 05:09 BUN/Creatinine Ratio 51.7 09/22/16 05:09 Glucose 147 mg/dL (70-105) H 09/22/16 05:09 Calcium 8.8 mg/dL (8.6-10.3) 09/22/16 05:09 Total Bilirubin 0.7 mg/dL (0.3-1.0) 09/22/16 05:09 AST 14 U/L (13-39) 09/22/16 05:09 ALT 9 U/L (7-52) 09/22/16 05:09 Alkaline Phosphatase 61 U/L (34-104) 09/22/16 05:09 Total Protein 6.2 gm/dL (6.0-8.3) 09/22/16 05:09 Albumin 3.4 gm/dL (3.7-5.3) L 09/22/16 05:09 Globulin 2.8 gm/dL 09/22/16 05:09 Albumin/Globulin Ratio 1.2 (1.0-1.8) 09/22/16 05:09 - Physical Exam Vitals and I&O: Vital Signs Temp 98.5 F 09/23/16 07:39 Pulse 95 09/23/16 07:39 Resp 18 09/23/16 07:39 BP 153/83 09/23/16 07:39 Pulse Ox 94 09/23/16 07:39 Intake & Output 09/22/16 09/23/16 09/23/16 18:59 06:59 18:59 Intake Total 1200 1100 Output Total 500 Balance 1200 600 Intake: Intake, IV Amount 1200 1100 Sodium Chloride 0.9% 1, 1000 1000 000 ml @ 75 mls/hr IV . [id number] [facility] Rx#:[id number] metroNIDAZOLE 500mg/NS 200 100 100mL 500 mg In 100 ml @ 100 mls/hr IV Q8HR [facility] Rx #:[id number] Output: Urine 500 Active Medications: Current Medications Diclofenac Sodium (Voltaren) 75 mg PO BID [facility] Stop: 11/22/16 08:59 Enoxaparin Sodium (Lovenox) 30 mg SUBQ Q12HR [facility] Stop: 11/22/16 08:59 Hydromorphone HCl (Dilaudid) 1 mg IVP Q6HR PRN PRN Reason: Pain or Fever >101 Stop: 11/20/16 15:54 Last Admin: 09/22/16 23:42 Dose: 1 mg Sodium Chloride (Nacl 0.9%) 1,000 mls @ 75 mls/hr IV .[id number] [facility] Stop: 11/20/16 15:55 Last Admin: 09/23/16 05:53 Dose: 75 mls/hr Metronidazole (Flagyl) 500 mg in 100 mls @ 100 mls/hr IV Q8HR [facility] Stop: 11/21/16 05:59 Last Admin: 09/23/16 05:53 Dose: 100 mls/hr General: Alert, Oriented x3, Cooperative, No acute distress HEENT: Atraumatic Neck: Supple Cardiovascular: Regular rate Lungs: Clear to auscultation Abdomen: Bowel sounds, Soft, Other (Surgical wound clean) Extremities: Other (Pain in right knee) Neurological: Other (Non ambulatory) Skin: Other (Warm and dry) Psych/Mental Status: Mental status NL - Procedures Procedures: Procedures Procedure Code Date REMOVAL OF SMALL INTESTINE 93256 09/21/16 REPAIR ABDOMINAL WALL, OPEN APPROACH [id number] 09/21/16 RESECTION OF SMALL INTESTINE, OPEN APPROACH [id number] 09/21/16 RPR VENTRAL SAVANA[facility] INIT BLOCK 74879 09/21/16 Assessment/Plan - Assessment Assessment: Patient is awake, alert, calm, in no acute distress. Dx: S/P incarcerated ventral hernia, Knee osteoarthrosis - Plan Plan: Patient had surgery, seem much better. Will continue same management.
[2016-09-23] MEDS: Diclofenac 75 mg Tab PO SCH ×2 (09:42→16:43)
[2016-09-23] MEDS: Enoxaparin 30 mg/0.3 mL 0.3mL Syr SUBQ SCH ×2 (09:45→21:52)
[2016-09-23] MEDS ORDERED: Fleet Enema 135 mL RC ONE (11:15)
--- NOTE | 2016-09-23 14:40 | Pathology Report ---
[id number] Collection Date: 09/21/2016 Surgeon: Dr. Blue Jeter Specimen Description: 1: Ventral hernia sac 2: Small bowel resection Gross Description: Part I: Received in formalin is a 4 x 2.5 x 1.0 cm portion of palmer-yellow fibrofatty tissue with a glistening membranous lining on one surface of the specimen. Sectioning shows no focal lesions. [employer] sections are submitted in one cassette labeled A. Gross Description: Part II: Received in formalin is a 7 cm in length x 3.2 cm in diameter segment of small bowel with surgical dai at both ends of the specimen. The outer surface is palmer and glistening with a small amount of adipose tissue. Opening the specimen shows the normal folded mucosa with no focal lesions appreciated. [employer] Developer sections are submitted in two cassettes labeled B1 and B2. Microscopic Description: Part I: The histologic sections show benign fibroadipose tissue with areas of mild chronic inflammation consisting of lymphocytes. Diagnosis: Part I: Benign fibroadipose tissue consistent with hernia sac. Microscopic Description: Part II: The histologic sections show portions of small bowel wall and mucosa showing no significant pathologic abnormalities. Diagnosis: Part II: Portion of benign small bowel. [facility]# [id number] [facility]
--- NOTE | 2016-09-23 22:40 | Consultation ---
HISTORY OF PRESENT ILLNESS: An 81-year-old female transferred from [facility] unit with a need for hernia surgery. The patient was seen by Dr. Ramirez, noted to have cognitive decline, started on appropriate treatment. The patient was found out of her home, unable to care for herself, brought to the hospital with grave disability. On [id number], the patient is alert and oriented to name. She knows that she had a surgery. She knows she is in the hospital. She knows the city. She knows the year. She is not quite sure about the month. She tells me she had been living at home, but seems to be aware that she cannot take care of herself. Denying overt depression, no anxiety, no distress noted. ____ been calm and cooperative. PAST PSYCHIATRIC HISTORY: Cognitive decline. FAMILY HISTORY: Noncontributory. SOCIAL HISTORY: The patient had been living at home, but unable to care for herself. There is some family involved, niece for example. Please see full Psych eval for further details about social history. MEDICATIONS: Reviewed. MENTAL STATUS EXAMINATION: Stated age. Eye contact engaged. Speech low volume. Mood "okay." Affect flat. Thought process seemed somewhat disoriented, but she is aware where she is, the year. No SI, no HI, no perceptual disturbances. No evidence of psychosis. Insight and judgment diminished x 2, poor impulse control. PROVISIONAL DIAGNOSIS: Dementia. MEDICAL: Status post hernia repair surgery. RECOMMENDATIONS AND PLAN: Continue to monitor. The patient will likely need transfer back to the [facility] upon medical stabilization, unless placement can be confirmed for her due to her inability to utilize basic food, clothing and care home. [facility]# [id number]
[2016-09-24] MEDS: metroNIDAZOLE 500mg/NS 100mL 500 MG/100 ML BAG IV SCH ×3 (05:29→20:52)
--- NOTE | 2016-09-24 08:22 | General Progress Note ---
Subjective - Review of Systems Service Date: 08/27/16 Subjective: I had vomit yesterday Objective - Results Result Diagrams: 09/22/16 05:09 09/22/16 05:09 Recent Labs: Laboratory Last Values WBC 7.0 Th/cmm (4.8-10.8) 09/22/16 05:09 RBC 4.08 Mil/cmm (3.80-5.20) 09/22/16 05:09 Hgb 12.4 gm/dL (11.7-16.1) D 09/22/16 05:09 Hct 36.9 % (35.0-45.0) D 09/22/16 05:09 MCV 90.6 fl (81-100) 09/22/16 05:09 MCH 30.4 pg (27.0-31.0) 09/22/16 05:09 MCHC Differential 33.5 pg (28.0-36.0) 09/22/16 05:09 RDW 13.7 % (11.5-20.0) 09/22/16 05:09 Plt Count 241 Th/cmm (150-400) D 09/22/16 05:09 MPV 8.1 fl 09/22/16 05:09 Neutrophils % 77.9 % (40.0-80.0) 09/21/16 17:35 Band Neutrophils % 17 % (0-10) H 09/22/16 05:09 Lymphocytes % 15.3 % (20.0-50.0) L 09/21/16 17:35 Monocytes % 5.7 % (2.0-10.0) 09/21/16 17:35 Eosinophils % 0.5 % (0.0-5.0) 09/21/16 17:35 Basophils % 0.6 % (0.0-2.0) 09/21/16 17:35 Neutrophils (Manual) 59 % (40-80) 09/22/16 05:09 Lymphocytes 11 % (20-50) L 09/22/16 05:09 Monocytes 13 % (2-10) H 09/22/16 05:09 Platelet Estimate ADEQUATE (NORMAL) 09/22/16 05:09 Platelet Morphology NORMAL (NORMAL) 09/22/16 05:09 RBC Morph Micro Appear NORMAL (NORMAL) 09/22/16 05:09 Sodium 141 mEq/L (136-145) 09/22/16 05:09 Potassium 3.5 mEq/L (3.5-5.1) 09/22/16 05:09 Chloride 110 mEq/L (98-107) H 09/22/16 05:09 Carbon Dioxide 22.9 mEq/L (21.0-31.0) 09/22/16 05:09 Anion Gap 11.6 (7.0-16.0) 09/22/16 05:09 BUN 31 mg/dL (7-25) H 09/22/16 05:09 Creatinine 0.6 mg/dL (0.6-1.2) 09/22/16 05:09 Est GFR ( Amer) TNP 09/22/16 05:09 Est GFR (Non-Af Amer) TNP 09/22/16 05:09 BUN/Creatinine Ratio 51.7 09/22/16 05:09 Glucose 147 mg/dL (70-105) H 09/22/16 05:09 Calcium 8.8 mg/dL (8.6-10.3) 09/22/16 05:09 Total Bilirubin 0.7 mg/dL (0.3-1.0) 09/22/16 05:09 AST 14 U/L (13-39) 09/22/16 05:09 ALT 9 U/L (7-52) 09/22/16 05:09 Alkaline Phosphatase 61 U/L (34-104) 09/22/16 05:09 Total Protein 6.2 gm/dL (6.0-8.3) 09/22/16 05:09 Albumin 3.4 gm/dL (3.7-5.3) L 09/22/16 05:09 Globulin 2.8 gm/dL 09/22/16 05:09 Albumin/Globulin Ratio 1.2 (1.0-1.8) 09/22/16 05:09 - Physical Exam Vitals and I&O: Vital Signs Temp 98.7 F 09/24/16 04:00 Pulse 86 09/24/16 04:00 Resp 18 09/24/16 04:00 BP 150/81 09/24/16 04:00 Pulse Ox 96 09/24/16 04:00 Intake & Output 09/23/16 09/24/16 09/24/16 18:59 06:59 18:59 Intake Total 500 1200 Output Total 400 Balance 100 1200 Intake: Intake, IV Amount 100 1200 Sodium Chloride 0.9% 1, 1000 000 ml @ 75 mls/hr IV . [id number] [facility] Rx#:[id number] metroNIDAZOLE 500mg/NS 100 200 100mL 500 mg In 100 ml @ 100 mls/hr IV Q8HR [facility] Rx #:[id number] Oral 400 Output: Urine 400 Other: # Bowel Movements 1 Active Medications: Current Medications Clonidine HCl (Catapres) 0.1 mg PO Q6HR PRN PRN Reason: HTN Stop: 11/22/16 19:28 Last Admin: 09/23/16 21:53 Dose: 0.1 mg Diclofenac Sodium (Voltaren) 75 mg PO BID [facility] Stop: 11/22/16 08:59 Last Admin: 09/23/16 16:43 Dose: 75 mg Enoxaparin Sodium (Lovenox) 30 mg SUBQ Q12HR [facility] Stop: 11/22/16 08:59 Last Admin: 09/23/16 21:52 Dose: 30 mg Hydromorphone HCl (Dilaudid) 1 mg IVP Q6HR PRN PRN Reason: Pain or Fever >101 Stop: 11/20/16 15:54 Last Admin: 09/22/16 23:42 Dose: 1 mg Sodium Chloride (Nacl 0.9%) 1,000 mls @ 75 mls/hr IV .[id number] [facility] Stop: 11/20/16 15:55 Last Admin: 09/23/16 21:50 Dose: 75 mls/hr Metronidazole (Flagyl) 500 mg in 100 mls @ 100 mls/hr IV Q8HR [facility] Stop: 11/21/16 05:59 Last Infusion: 09/24/16 06:29 Dose: Infused Metoprolol Tartrate (Lopressor) 12.5 mg PO DAILY [facility] Stop: 11/22/16 15:59 Last Admin: 09/23/16 16:43 Dose: 12.5 mg Ondansetron HCl (Zofran) 4 mg IV Q6H PRN PRN Reason: Nausea / Vomiting Stop: 11/22/16 21:02 Last Admin: 09/23/16 21:55 Dose: 4 mg General: Alert, Oriented x3, Cooperative, No acute distress HEENT: Atraumatic Neck: Supple Cardiovascular: Regular rate Lungs: Clear to auscultation Abdomen: Bowel sounds, Other (Tender at palpation, distended) Neurological: Other (Non ambulatory) Skin: Other (Warm and dry) Psych/Mental Status: Mental status NL - Procedures Procedures: Procedures Procedure Code Date REMOVAL OF SMALL INTESTINE 39072 09/21/16 REPAIR ABDOMINAL WALL, OPEN APPROACH [id number] 09/21/16 RESECTION OF SMALL INTESTINE, OPEN APPROACH [id number] 09/21/16 RPR VENTRAL SAVANA[facility] INIT BLOCK 79602 09/21/16 Assessment/Plan - Assessment Assessment: Patient is awake, alert, calm, in no acute distress. Bowel sounds are present but abdomen is distended and tender, patient had a bowel movement today. Dx: S/ P incarcerated ventral hernia, Knee osteoarthrosis - Plan Plan: Abdominal CT is requested. Will continue to monitor.
[2016-09-24] MEDS: Enoxaparin 30 mg/0.3 mL 0.3mL Syr SUBQ SCH ×2 (08:58→20:53)
[2016-09-24] MEDS: Diclofenac 75 mg Tab PO SCH ×2 (08:58→17:05)
--- NOTE | 2016-09-24 10:07 | Diagnostic Imaging Report ---
CT scan abdomen and pelvis without intravenous contrast HISTORY: Pain, abdominal distention Total DLP equals 312 CTDI equals 7.1 Axial sections were obtained from the xiphoid process down to the pubic symphysis. Limited sections through the lower chest demonstrate cardiomegaly. Small right pleural effusion. Pulmonary parenchymal density noted in the right lower lobe consistent with consolidation and/or atelectasis. Faint infiltrate also noted within the left lower lobe with a small left pleural effusion. The liver exhibits a homogeneous parenchyma. Hiatal hernia noted. There is a severely dilated air and fluid-filled stomach along with multiple loops of dilated small bowel. No significant colonic dilatation. Findings are most suggestive of a distal small bowel obstruction. Surgical suture material noted in the right abdomen. No focal renal lesions. No definite focal abnormalities seen in the region of the pancreas. Exam the pelvis demonstrates a normal size uterus with calcifications consistent with fibroid changes. Suggestion of small amount of free fluid in the lower pelvis. Severe degenerative changes noted throughout the spine. Atherosclerotic calcification noted in the aorta. There is an old fracture of the right femoral neck with upward displacement of the femoral shaft. Also noted is severe deformity about the left hip with virtual obliteration of the joint space. IMPRESSION: 1. Markedly dilated stomach and small bowel. Findings suggest changes associated with a distal small bowel obstruction. Clinical correlation is needed. 2. Surgical changes within the right abdomen 3. Suggestion of a small amount of free fluid in the lower pelvis. 4. Small bilateral pleural effusions. Focal pulmonary parenchymal density in the right lower lobe consistent with consolidation and/or atelectasis. Mild infiltrate also noted within the left lower lobe of the lung. 5. Severe degenerative changes throughout the spine 6. Old displaced right femoral neck fracture with upward displacement of the femoral shaft. 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
[2016-09-24] MEDS: Sodium Chloride 0.9% 1,000 ML IV SCH ×2 (14:34→17:04)
--- NOTE | 2016-09-24 19:05 | Admit Criteria Form ---
Admit Criteria Forms - Admit Criteria Diagnosis: INTESTINAL OBSTRUCTION Clinical Indications for Admission to Inpatient Care (Place 'X' for any and all applicable criteria): Admission is indicated for ANY ONE of the following (1)(2)(3)(4)(5): [ ]I. Partial bowel obstruction [X]II. Complete bowel obstruction Extended stay beyond goal length of stay may be needed for(1)(4)(12(: [ ]a) Identified etiology (eg, hernia, volvulus, cancer with obstruction) requiring intervention [ ]b) Gallstone ileus [ ]c) Surgical intervention [ ]d) Acute comorbid illness (eg, electrolyte imbalance, hypovolemia, renal failure) The original [employer] content created by [employer] has been revised. The portions of the content which have been revised are identified through the use of italic text or in bold, and [facility] has neither reviewed nor approved the modified material. All other unmodified content is copyright [employer]. Please see references footnoted in the original [facility] edition 2016 Admit Criteria Met?: Yes
[2016-09-25] MEDS: HYDROmorphone 1 mg/mL 1mL Syr IVP PRN ×3 (00:22→18:50)
[2016-09-25] MEDS: Sodium Chloride 0.9% 1,000 ML IV SCH ×2 (02:48→18:51)
[2016-09-25] MEDS: metroNIDAZOLE 500mg/NS 100mL 500 MG/100 ML BAG IV SCH ×3 (04:50→21:12)
--- NOTE | 2016-09-25 06:17 | Consultation ---
HISTORY OF PRESENT ILLNESS: The patient was seen, chart reviewed, and discussed with staff. The patient is sleeping, but arousable, fairly well oriented to name and year, not month, calm and cooperative, unable to verbalize a plan for self-care. She remains gravely disabled. Unable to utilize basic food, clothing, and senior living, status post surgery, comfortable, calm, no distress. Sleeping well. No overt psychotic symptoms. ASSESSMENT: The patient is engaged, sleeping, but arousable. Fair attention ADLs, friendly, calm, fair orientation, but cognitive decline present, unable to utilize basic food, clothing, and senior living, considered gravely disabled. PLAN: We will continue to monitor. Once the patient is medically stabilized, transfer back to [facility]. So, further efforts can be made the patient with housing and placements. JOB# [id number]
[2016-09-25 07:25] LABS: % BASOPHILS 0.6 % (0.0-2.0); % EOSINOPHILS 0.8 % (0.0-5.0); % LYMPHOCYTES 12.5 % (20.0-50.0); % MONOCYTES 5.8 % (2.0-10.0); % NEUTROPHILS 80.3 % (40.0-80.0); HEMATOCRIT 38.5 % (35.0-45.0); HEMOGLOBIN 12.9 gm/dL (11.7-16.1); MEAN CELL VOLUME 90.3 fl (81-100); MEAN CORPUSCULAR HEMOGLOBIN 30.3 pg (27.0-31.0); MEAN CORPUSCULAR HGB CONC 33.6 pg (28.0-36.0); MEAN PLATELET VOLUME 8.2 fl; NEUTROPHILE ABSOLUTE 7.9 Th/cmm (1.8-8.0); RED BLOOD COUNT 4.26 Mil/cmm (3.80-5.20); RED CELL DISTRIBUTION WIDTH 13.2 % (11.5-20.0)
[2016-09-25 07:39] LABS: WHITE BLOOD COUNT 9.9 Th/cmm (4.8-10.8)
[2016-09-25 07:40] LABS: PLATELET COUNT 330 Th/cmm (150-400)
[2016-09-25 07:49] LABS: ALB/GLOB RATIO 1.1 (1.0-1.8); ALKALINE PHOSPHATASE 61 U/L (34-104); ANION GAP 17.1 (7.0-16.0); BILIRUBIN,TOTAL 0.6 mg/dL (0.3-1.0); BUN - UREA NITROGEN 23 mg/dL (7-25); CALCIUM SERUM 8.9 mg/dL (8.6-10.3); CARBON DIOXIDE 19.2 mEq/L (21.0-31.0); CHLORIDE 109 mEq/L (98-107); CREATININE - SERUM 0.5 mg/dL (0.6-1.2); GLUCOSE 91 mg/dL (70-105); POTASSIUM SERUM 3.3 mEq/L (3.5-5.1); SGOT 13 U/L (13-39); SGPT/ALT 8 U/L (7-52); SODIUM SERUM 142 mEq/L (136-145)
--- NOTE | 2016-09-25 08:37 | General Progress Note ---
Subjective - Review of Systems Service Date: 09/25/16 Subjective: I have pain in my right knee Objective - Results Result Diagrams: 09/25/16 06:29 09/25/16 06:29 Recent Labs: Laboratory Last Values WBC 9.9 Th/cmm (4.8-10.8) D 09/25/16 06:29 RBC 4.26 Mil/cmm (3.80-5.20) 09/25/16 06:29 Hgb 12.9 gm/dL (11.7-16.1) 09/25/16 06:29 Hct 38.5 % (35.0-45.0) 09/25/16 06:29 MCV 90.3 fl (81-100) 09/25/16 06:29 MCH 30.3 pg (27.0-31.0) 09/25/16 06:29 MCHC Differential 33.6 pg (28.0-36.0) 09/25/16 06:29 RDW 13.2 % (11.5-20.0) 09/25/16 06:29 Plt Count 330 Th/cmm (150-400) D 09/25/16 06:29 MPV 8.2 fl 09/25/16 06:29 Neutrophils % 80.3 % (40.0-80.0) H 09/25/16 06:29 Band Neutrophils % 17 % (0-10) H 09/22/16 05:09 Lymphocytes % 12.5 % (20.0-50.0) L 09/25/16 06:29 Monocytes % 5.8 % (2.0-10.0) 09/25/16 06:29 Eosinophils % 0.8 % (0.0-5.0) 09/25/16 06:29 Basophils % 0.6 % (0.0-2.0) 09/25/16 06:29 Neutrophils (Manual) 59 % (40-80) 09/22/16 05:09 Lymphocytes 11 % (20-50) L 09/22/16 05:09 Monocytes 13 % (2-10) H 09/22/16 05:09 Platelet Estimate ADEQUATE (NORMAL) 09/22/16 05:09 Platelet Morphology NORMAL (NORMAL) 09/22/16 05:09 RBC Morph Micro Appear NORMAL (NORMAL) 09/22/16 05:09 Sodium 142 mEq/L (136-145) 09/25/16 06:29 Potassium 3.3 mEq/L (3.5-5.1) L 09/25/16 06:29 Chloride 109 mEq/L (98-107) H 09/25/16 06:29 Carbon Dioxide 19.2 mEq/L (21.0-31.0) L 09/25/16 06:29 Anion Gap 17.1 (7.0-16.0) H 09/25/16 06:29 BUN 23 mg/dL (7-25) 09/25/16 06:29 Creatinine 0.5 mg/dL (0.6-1.2) L 09/25/16 06:29 Est GFR ( Amer) TNP 09/25/16 06:29 Est GFR (Non-Af Amer) TNP 09/25/16 06:29 BUN/Creatinine Ratio 46.0 09/25/16 06:29 Glucose 91 mg/dL (70-105) 09/25/16 06:29 Calcium 8.9 mg/dL (8.6-10.3) 09/25/16 06:29 Total Bilirubin 0.6 mg/dL (0.3-1.0) 09/25/16 06:29 AST 13 U/L (13-39) 09/25/16 06:29 ALT 8 U/L (7-52) 09/25/16 06:29 Alkaline Phosphatase 61 U/L (34-104) 09/25/16 06:29 Total Protein 6.2 gm/dL (6.0-8.3) 09/25/16 06:29 Albumin 3.2 gm/dL (3.7-5.3) L 09/25/16 06:29 Globulin 3.0 gm/dL 09/25/16 06:29 Albumin/Globulin Ratio 1.1 (1.0-1.8) 09/25/16 06:29 - Physical Exam Vitals and I&O: Vital Signs Temp 98.0 F 09/25/16 04:00 Pulse 98 09/25/16 04:00 Resp 18 09/25/16 04:00 BP 137/78 09/25/16 04:00 Pulse Ox 96 09/25/16 04:00 Intake & Output 09/24/16 09/25/16 09/25/16 18:59 06:59 18:59 Intake Total 1300 1073.333 Output Total 600 450 Balance 700 623.333 Intake: Intake, IV Amount 1100 1073.333 Sodium Chloride 0.9% 1, 973.333 000 ml @ 100 mls/hr IV . Q10H [facility] Rx#:[id number] Sodium Chloride 0.9% 1, 1000 000 ml @ 75 mls/hr IV . [id number] [facility] Rx#:[id number] metroNIDAZOLE 500mg/NS 100 100 100mL 500 mg In 100 ml @ 100 mls/hr IV Q8HR [facility] Rx #:[id number] Oral 200 Output: Gastric Drainage 300 50 Urine 300 400 Other: # Bowel Movements 1 Stool Characteristics Formed Active Medications: Current Medications Clonidine HCl (Catapres) 0.1 mg PO Q6HR PRN PRN Reason: HTN Stop: 11/22/16 19:28 Last Admin: 09/23/16 21:53 Dose: 0.1 mg Diclofenac Sodium (Voltaren) 75 mg PO BID [facility] Stop: 11/22/16 08:59 Last Admin: 09/24/16 17:05 Dose: Not Given Enoxaparin Sodium (Lovenox) 30 mg SUBQ Q12HR [facility] Stop: 11/22/16 08:59 Last Admin: 09/24/16 20:53 Dose: 30 mg Hydromorphone HCl (Dilaudid) 1 mg IVP Q6HR PRN PRN Reason: Pain or Fever >101 Stop: 11/20/16 15:54 Last Admin: 09/25/16 00:22 Dose: 1 mg Metronidazole (Flagyl) 500 mg in 100 mls @ 100 mls/hr IV Q8HR [facility] Stop: 11/21/16 05:59 Last Admin: 09/25/16 04:50 Dose: 100 mls/hr Sodium Chloride (Nacl 0.9%) 1,000 mls @ 100 mls/hr IV .Q10H [facility] Stop: 11/23/16 16:14 Last Admin: 09/25/16 02:48 Dose: 100 mls/hr Metoprolol Tartrate (Lopressor) 12.5 mg PO DAILY [facility] Stop: 11/22/16 15:59 Last Admin: 09/24/16 08:58 Dose: 12.5 mg Ondansetron HCl (Zofran) 4 mg IV Q6H PRN PRN Reason: Nausea / Vomiting Stop: 11/22/16 21:02 Last Admin: 09/23/16 21:55 Dose: 4 mg General: Alert, Oriented x3, Cooperative HEENT: Atraumatic Neck: Supple Cardiovascular: Regular rate Lungs: Clear to auscultation Abdomen: Soft, Other (Non tender, BS diminished) Extremities: Other (Pain at movement in right knee) Neurological: Other (Non ambulatory at this moment) Skin: Other (Warm and dry) Psych/Mental Status: Mental status NL - Procedures Procedures: Procedures Procedure Code Date REMOVAL OF SMALL INTESTINE 42565 09/21/16 REPAIR ABDOMINAL WALL, OPEN APPROACH [id number] 09/21/16 RESECTION OF SMALL INTESTINE, OPEN APPROACH [id number] 09/21/16 RPR [facility] INIT BLOCK 15830 09/21/16 Assessment/Plan - Assessment Assessment: Patient is awake, alert, calm, with pain in right knee. No lower extremities edema. BS decresed but patient had a bowel movement yesterday and today. NG tube with sucction in place. Dx: SBO, S/P incarcerated ventral hernia, Knee osteoarthrosis - Plan Plan: Abdominal CT showed SBO, but today improved. Clear liquid diet is introduced. Will continue to monitor.
[2016-09-25] MEDS ORDERED: Potassium Chloride 40 MEQ, Lidocaine 1% 20mL Vial 25 MG in Sodium Chloride 0.9% 250 ML IV ONE (08:52)
[2016-09-25] MEDS: Diclofenac 75 mg Tab PO SCH ×2 (09:07→17:15)
[2016-09-25] MEDS: Enoxaparin 30 mg/0.3 mL 0.3mL Syr SUBQ SCH ×2 (09:07→21:12)
--- NOTE | 2016-09-25 10:15 | General Progress Note ---
Subjective - Review of Systems Service Date: 09/25/16 Subjective: had BM abdomen is still distended, BS present on NGT, liquids ok start PT Objective - Results Result Diagrams: 09/25/16 06:29 09/25/16 06:29 Recent Labs: Laboratory Last Values WBC 9.9 Th/cmm (4.8-10.8) D 09/25/16 06:29 RBC 4.26 Mil/cmm (3.80-5.20) 09/25/16 06:29 Hgb 12.9 gm/dL (11.7-16.1) 09/25/16 06:29 Hct 38.5 % (35.0-45.0) 09/25/16 06:29 MCV 90.3 fl (81-100) 09/25/16 06:29 MCH 30.3 pg (27.0-31.0) 09/25/16 06:29 MCHC Differential 33.6 pg (28.0-36.0) 09/25/16 06:29 RDW 13.2 % (11.5-20.0) 09/25/16 06:29 Plt Count 330 Th/cmm (150-400) D 09/25/16 06:29 MPV 8.2 fl 09/25/16 06:29 Neutrophils % 80.3 % (40.0-80.0) H 09/25/16 06:29 Band Neutrophils % 17 % (0-10) H 09/22/16 05:09 Lymphocytes % 12.5 % (20.0-50.0) L 09/25/16 06:29 Monocytes % 5.8 % (2.0-10.0) 09/25/16 06:29 Eosinophils % 0.8 % (0.0-5.0) 09/25/16 06:29 Basophils % 0.6 % (0.0-2.0) 09/25/16 06:29 Neutrophils (Manual) 59 % (40-80) 09/22/16 05:09 Lymphocytes 11 % (20-50) L 09/22/16 05:09 Monocytes 13 % (2-10) H 09/22/16 05:09 Platelet Estimate ADEQUATE (NORMAL) 09/22/16 05:09 Platelet Morphology NORMAL (NORMAL) 09/22/16 05:09 RBC Morph Micro Appear NORMAL (NORMAL) 09/22/16 05:09 Sodium 142 mEq/L (136-145) 09/25/16 06:29 Potassium 3.3 mEq/L (3.5-5.1) L 09/25/16 06:29 Chloride 109 mEq/L (98-107) H 09/25/16 06:29 Carbon Dioxide 19.2 mEq/L (21.0-31.0) L 09/25/16 06:29 Anion Gap 17.1 (7.0-16.0) H 09/25/16 06:29 BUN 23 mg/dL (7-25) 09/25/16 06:29 Creatinine 0.5 mg/dL (0.6-1.2) L 09/25/16 06:29 Est GFR ( Amer) TNP 09/25/16 06:29 Est GFR (Non-Af Amer) TNP 09/25/16 06:29 BUN/Creatinine Ratio 46.0 09/25/16 06:29 Glucose 91 mg/dL (70-105) 09/25/16 06:29 Calcium 8.9 mg/dL (8.6-10.3) 09/25/16 06:29 Total Bilirubin 0.6 mg/dL (0.3-1.0) 09/25/16 06:29 AST 13 U/L (13-39) 09/25/16 06:29 ALT 8 U/L (7-52) 09/25/16 06:29 Alkaline Phosphatase 61 U/L (34-104) 09/25/16 06:29 Total Protein 6.2 gm/dL (6.0-8.3) 09/25/16 06:29 Albumin 3.2 gm/dL (3.7-5.3) L 09/25/16 06:29 Globulin 3.0 gm/dL 09/25/16 06:29 Albumin/Globulin Ratio 1.1 (1.0-1.8) 09/25/16 06:29 - Physical Exam Vitals and I&O: Vital Signs Temp 98.0 F 09/25/16 04:00 Pulse 94 09/25/16 09:06 Resp 18 09/25/16 04:00 BP 156/79 09/25/16 09:06 Pulse Ox 96 09/25/16 04:00 Intake & Output 09/24/16 09/25/16 09/25/16 18:59 06:59 18:59 Intake Total 1300 1073.333 Output Total 600 450 Balance 700 623.333 Intake: Intake, IV Amount 1100 1073.333 Sodium Chloride 0.9% 1, 973.333 000 ml @ 100 mls/hr IV . Q10H [facility] Rx#:[id number] Sodium Chloride 0.9% 1, 1000 000 ml @ 75 mls/hr IV . [id number] [facility] Rx#:[id number] metroNIDAZOLE 500mg/NS 100 100 100mL 500 mg In 100 ml @ 100 mls/hr IV Q8HR [facility] Rx #:[id number] Oral 200 Output: Gastric Drainage 300 50 Urine 300 400 Other: # Bowel Movements 1 Stool Characteristics Formed Active Medications: Current Medications Clonidine HCl (Catapres) 0.1 mg PO Q6HR PRN PRN Reason: HTN Stop: 11/22/16 19:28 Last Admin: 09/23/16 21:53 Dose: 0.1 mg Diclofenac Sodium (Voltaren) 75 mg PO BID [facility] Stop: 11/22/16 08:59 Last Admin: 09/25/16 09:07 Dose: 75 mg Enoxaparin Sodium (Lovenox) 30 mg SUBQ Q12HR [facility] Stop: 11/22/16 08:59 Last Admin: 09/25/16 09:07 Dose: 30 mg Hydromorphone HCl (Dilaudid) 1 mg IVP Q6HR PRN PRN Reason: Pain (Moderate) Stop: 11/20/16 15:54 Last Admin: 09/25/16 09:37 Dose: 1 mg Metronidazole (Flagyl) 500 mg in 100 mls @ 100 mls/hr IV Q8HR [facility] Stop: 11/21/16 05:59 Last Admin: 09/25/16 04:50 Dose: 100 mls/hr Sodium Chloride (Nacl 0.9%) 1,000 mls @ 100 mls/hr IV .Q10H [facility] Stop: 11/23/16 16:14 Last Admin: 09/25/16 02:48 Dose: 100 mls/hr Potassium Chloride 40 meq/Lidocaine HCl 25 mg/ Sodium Chloride 272.5 mls @ 68 mls/hr IV X1 [facility] Stop: 09/25/16 12:52 Metoprolol Tartrate (Lopressor) 12.5 mg PO DAILY [facility] Stop: 11/22/16 15:59 Last Admin: 09/25/16 09:06 Dose: 12.5 mg Ondansetron HCl (Zofran) 4 mg IV Q6H PRN PRN Reason: Nausea / Vomiting Stop: 11/22/16 21:02 Last Admin: 09/23/16 21:55 Dose: 4 mg - Procedures Procedures: Procedures Procedure Code Date REMOVAL OF SMALL INTESTINE 58065 09/21/16 REPAIR ABDOMINAL WALL, OPEN APPROACH [id number] 09/21/16 RESECTION OF SMALL INTESTINE, OPEN APPROACH [id number] 09/21/16 RPR [facility] INIT BLOCK 97891 09/21/16
[2016-09-26] MEDS: metroNIDAZOLE 500mg/NS 100mL 500 MG/100 ML BAG IV SCH ×3 (05:26→22:12)
[2016-09-26] MEDS: Sodium Chloride 0.9% 1,000 ML IV SCH ×2 (05:31→22:12)
[2016-09-26 07:19] LABS: MEAN CORPUSCULAR HGB CONC 33.4 pg (28.0-36.0)
[2016-09-26 07:30] LABS: HEMATOCRIT 38.9 % (35.0-45.0); MEAN CELL VOLUME 89.9 fl (81-100); MEAN CORPUSCULAR HEMOGLOBIN 30.1 pg (27.0-31.0); MEAN PLATELET VOLUME 8.3 fl; PLATELET COUNT 355 Th/cmm (150-400); RED BLOOD COUNT 4.32 Mil/cmm (3.80-5.20); RED CELL DISTRIBUTION WIDTH 13.4 % (11.5-20.0)
[2016-09-26 07:36] LABS: ALB/GLOB RATIO 1.1 (1.0-1.8); ALKALINE PHOSPHATASE 56 U/L (34-104); ANION GAP 15.8 (7.0-16.0); BILIRUBIN,TOTAL 0.5 mg/dL (0.3-1.0); BUN - UREA NITROGEN 27 mg/dL (7-25); BUN/CREATININE RATIO 67.5; CALCIUM SERUM 8.7 mg/dL (8.6-10.3); CHLORIDE 113 mEq/L (98-107); CREATININE - SERUM 0.4 mg/dL (0.6-1.2); GLUCOSE 85 mg/dL (70-105); POTASSIUM SERUM 3.8 mEq/L (3.5-5.1); SGOT 15 U/L (13-39); SGPT/ALT 8 U/L (7-52); SODIUM SERUM 141 mEq/L (136-145)
[2016-09-26 07:52] LABS: WHITE BLOOD COUNT 12.2 Th/cmm (4.8-10.8)
--- NOTE | 2016-09-26 08:18 | General Progress Note ---
Subjective - Review of Systems Service Date: 09/26/16 Subjective: I fell the same Objective - Results Result Diagrams: 09/26/16 06:07 09/26/16 06:07 Recent Labs: Laboratory Last Values WBC 12.2 Th/cmm (4.8-10.8) H D 09/26/16 06:07 RBC 4.32 Mil/cmm (3.80-5.20) 09/26/16 06:07 Hgb 13.0 gm/dL (11.7-16.1) 09/26/16 06:07 Hct 38.9 % (35.0-45.0) 09/26/16 06:07 MCV 89.9 fl (81-100) 09/26/16 06:07 MCH 30.1 pg (27.0-31.0) 09/26/16 06:07 MCHC Differential 33.4 pg (28.0-36.0) 09/26/16 06:07 RDW 13.4 % (11.5-20.0) 09/26/16 06:07 Plt Count 355 Th/cmm (150-400) 09/26/16 06:07 MPV 8.3 fl 09/26/16 06:07 Neutrophils % 80.3 % (40.0-80.0) H 09/25/16 06:29 Band Neutrophils % 17 % (0-10) H 09/22/16 05:09 Lymphocytes % 12.5 % (20.0-50.0) L 09/25/16 06:29 Monocytes % 5.8 % (2.0-10.0) 09/25/16 06:29 Eosinophils % 0.8 % (0.0-5.0) 09/25/16 06:29 Basophils % 0.6 % (0.0-2.0) 09/25/16 06:29 Neutrophils (Manual) 59 % (40-80) 09/22/16 05:09 Lymphocytes 11 % (20-50) L 09/22/16 05:09 Monocytes 13 % (2-10) H 09/22/16 05:09 Platelet Estimate ADEQUATE (NORMAL) 09/22/16 05:09 Platelet Morphology NORMAL (NORMAL) 09/22/16 05:09 RBC Morph Micro Appear NORMAL (NORMAL) 09/22/16 05:09 Sodium 141 mEq/L (136-145) 09/26/16 06:07 Potassium 3.8 mEq/L (3.5-5.1) 09/26/16 06:07 Chloride 113 mEq/L (98-107) H 09/26/16 06:07 Carbon Dioxide 16.0 mEq/L (21.0-31.0) L 09/26/16 06:07 Anion Gap 15.8 (7.0-16.0) 09/26/16 06:07 BUN 27 mg/dL (7-25) H 09/26/16 06:07 Creatinine 0.4 mg/dL (0.6-1.2) L 09/26/16 06:07 Est GFR ( Amer) TNP 09/26/16 06:07 Est GFR (Non-Af Amer) TNP 09/26/16 06:07 BUN/Creatinine Ratio 67.5 09/26/16 06:07 Glucose 85 mg/dL (70-105) 09/26/16 06:07 Calcium 8.7 mg/dL (8.6-10.3) 09/26/16 06:07 Total Bilirubin 0.5 mg/dL (0.3-1.0) 09/26/16 06:07 AST 15 U/L (13-39) 09/26/16 06:07 ALT 8 U/L (7-52) 09/26/16 06:07 Alkaline Phosphatase 56 U/L (34-104) 09/26/16 06:07 Total Protein 5.8 gm/dL (6.0-8.3) L 09/26/16 06:07 Albumin 3.0 gm/dL (3.7-5.3) L 09/26/16 06:07 Globulin 2.8 gm/dL 09/26/16 06:07 Albumin/Globulin Ratio 1.1 (1.0-1.8) 09/26/16 06:07 - Physical Exam Vitals and I&O: Vital Signs Temp 97.9 F 09/26/16 04:00 Pulse 90 09/26/16 04:00 Resp 18 09/26/16 04:00 BP 143/83 09/26/16 04:00 Pulse Ox 93 09/26/16 04:00 Intake & Output 09/25/16 09/26/16 09/26/16 18:59 06:59 18:59 Intake Total 1450 1200 Output Total 500 Balance 950 1200 Intake: Intake, IV Amount 1100 1200 Sodium Chloride 0.9% 1, 1000 1000 000 ml @ 100 mls/hr IV . Q10H [facility] Rx#:[id number] metroNIDAZOLE 500mg/NS 100 200 100mL 500 mg In 100 ml @ 100 mls/hr IV Q8HR [facility] Rx #:[id number] Oral 350 Output: Urine 500 Active Medications: Current Medications Clonidine HCl (Catapres) 0.1 mg PO Q6HR PRN PRN Reason: HTN Stop: 11/22/16 19:28 Last Admin: 09/23/16 21:53 Dose: 0.1 mg Diclofenac Sodium (Voltaren) 75 mg PO BID [facility] Stop: 11/22/16 08:59 Last Admin: 09/25/16 17:15 Dose: 75 mg Enoxaparin Sodium (Lovenox) 30 mg SUBQ Q12HR [facility] Stop: 11/22/16 08:59 Last Admin: 09/25/16 21:12 Dose: 30 mg Hydromorphone HCl (Dilaudid) 1 mg IVP Q6HR PRN PRN Reason: Pain (Moderate) Stop: 11/20/16 15:54 Last Admin: 09/25/16 18:50 Dose: 1 mg Metronidazole (Flagyl) 500 mg in 100 mls @ 100 mls/hr IV Q8HR [facility] Stop: 11/21/16 05:59 Last Infusion: 09/26/16 06:26 Dose: Infused Sodium Chloride (Nacl 0.9%) 1,000 mls @ 100 mls/hr IV .Q10H [facility] Stop: 11/23/16 16:14 Last Admin: 09/26/16 05:31 Dose: 100 mls/hr Piperacillin Sod/Tazobactam (Sod 3.375 gm/ Sodium Chloride) 50 mls @ 100 mls/ hr IV Q6HR [facility] Stop: 11/25/16 11:59 Metoprolol Tartrate (Lopressor) 12.5 mg PO DAILY [facility] Stop: 11/22/16 15:59 Last Admin: 09/25/16 09:06 Dose: 12.5 mg Ondansetron HCl (Zofran) 4 mg IV Q6H PRN PRN Reason: Nausea / Vomiting Stop: 11/22/16 21:02 Last Admin: 09/23/16 21:55 Dose: 4 mg General: Alert, Oriented x3, Cooperative Neck: Supple Cardiovascular: Regular rate Lungs: Clear to auscultation Abdomen: Other (Abdomen distended, BS decreased) Extremities: Other (No edema) Neurological: Other (Non ambulatory at this moment) Psych/Mental Status: Mental status NL - Procedures Procedures: Procedures Procedure Code Date REMOVAL OF SMALL INTESTINE 53523 09/21/16 REPAIR ABDOMINAL WALL, OPEN APPROACH [id number] 09/21/16 RESECTION OF SMALL INTESTINE, OPEN APPROACH [id number] 09/21/16 RPR [facility] INIT BLOCK 33783 09/21/16 Assessment/Plan - Assessment Assessment: Patient is awake, alert, calm, with pain in right knee. No lower extremities edema. BS decresed but patient had a bowel movement yesterday. On Clear liquid diet. NG tube with sucction in place. Today WBC is high. Dx: SBO, S/P incarcerated ventral hernia, Knee osteoarthrosis - Plan Plan: Abdominal CT showed SBO, but today improved. Zosyn is started. Will continue to monitor.
[2016-09-26] MEDS: HYDROmorphone 1 mg/mL 1mL Syr IVP PRN ×2 (08:59→22:55)
[2016-09-26] MEDS: Enoxaparin 30 mg/0.3 mL 0.3mL Syr SUBQ SCH ×2 (09:03→22:12)
[2016-09-26] MEDS: Diclofenac 75 mg Tab PO SCH ×2 (09:16→17:06)
[2016-09-26 11:09] LABS: NEUTROPHILS 79 % (40-80); PLATELET ESTIMATE ADEQUATE (NORMAL); PLATELET MORPHOLOGY NORMAL (NORMAL); TOTAL CELLS COUNTED 100
--- NOTE | 2016-09-26 11:37 | General Progress Note ---
Subjective - Review of Systems Service Date: 09/26/16 Events since last encounter: tolerating limited luiquids fleet enema ordered labs noted needs to ambulate, OOB, etc Subjective: had BM abdomen is still distended, BS present on NGT, liquids ok start PT Objective - Results Result Diagrams: 09/26/16 06:07 09/26/16 06:07 Recent Labs: Laboratory Last Values WBC 12.2 Th/cmm (4.8-10.8) H D 09/26/16 06:07 RBC 4.32 Mil/cmm (3.80-5.20) 09/26/16 06:07 Hgb 13.0 gm/dL (11.7-16.1) 09/26/16 06:07 Hct 38.9 % (35.0-45.0) 09/26/16 06:07 MCV 89.9 fl (81-100) 09/26/16 06:07 MCH 30.1 pg (27.0-31.0) 09/26/16 06:07 MCHC Differential 33.4 pg (28.0-36.0) 09/26/16 06:07 RDW 13.4 % (11.5-20.0) 09/26/16 06:07 Plt Count 355 Th/cmm (150-400) 09/26/16 06:07 MPV 8.3 fl 09/26/16 06:07 Neutrophils % 80.3 % (40.0-80.0) H 09/25/16 06:29 Band Neutrophils % 17 % (0-10) H 09/22/16 05:09 Lymphocytes % 12.5 % (20.0-50.0) L 09/25/16 06:29 Monocytes % 5.8 % (2.0-10.0) 09/25/16 06:29 Eosinophils % 0.8 % (0.0-5.0) 09/25/16 06:29 Basophils % 0.6 % (0.0-2.0) 09/25/16 06:29 Neutrophils (Manual) 79 % (40-80) 09/26/16 06:07 Lymphocytes 14 % (20-50) L 09/26/16 06:07 Monocytes 7 % (2-10) 09/26/16 06:07 Platelet Estimate ADEQUATE (NORMAL) 09/26/16 06:07 Platelet Morphology NORMAL (NORMAL) 09/26/16 06:07 RBC Morph Micro Appear NORMAL (NORMAL) 09/26/16 06:07 Sodium 141 mEq/L (136-145) 09/26/16 06:07 Potassium 3.8 mEq/L (3.5-5.1) 09/26/16 06:07 Chloride 113 mEq/L (98-107) H 09/26/16 06:07 Carbon Dioxide 16.0 mEq/L (21.0-31.0) L 09/26/16 06:07 Anion Gap 15.8 (7.0-16.0) 09/26/16 06:07 BUN 27 mg/dL (7-25) H 09/26/16 06:07 Creatinine 0.4 mg/dL (0.6-1.2) L 09/26/16 06:07 Est GFR ( Amer) TNP 09/26/16 06:07 Est GFR (Non-Af Amer) TNP 09/26/16 06:07 BUN/Creatinine Ratio 67.5 09/26/16 06:07 Glucose 85 mg/dL (70-105) 09/26/16 06:07 Calcium 8.7 mg/dL (8.6-10.3) 09/26/16 06:07 Total Bilirubin 0.5 mg/dL (0.3-1.0) 09/26/16 06:07 AST 15 U/L (13-39) 09/26/16 06:07 ALT 8 U/L (7-52) 09/26/16 06:07 Alkaline Phosphatase 56 U/L (34-104) 09/26/16 06:07 Total Protein 5.8 gm/dL (6.0-8.3) L 09/26/16 06:07 Albumin 3.0 gm/dL (3.7-5.3) L 09/26/16 06:07 Globulin 2.8 gm/dL 09/26/16 06:07 Albumin/Globulin Ratio 1.1 (1.0-1.8) 09/26/16 06:07 - Physical Exam Vitals and I&O: Vital Signs Temp 98.5 F 09/26/16 08:00 Pulse 101 09/26/16 09:16 Resp 20 09/26/16 08:00 BP 151/90 09/26/16 09:16 Pulse Ox 94 09/26/16 08:00 Intake & Output 09/25/16 09/26/16 09/26/16 18:59 06:59 18:59 Intake Total 1450 1200 Output Total 500 Balance 950 1200 Intake: Intake, IV Amount 1100 1200 Sodium Chloride 0.9% 1, 1000 1000 000 ml @ 100 mls/hr IV . Q10H [facility] Rx#:[id number] metroNIDAZOLE 500mg/NS 100 200 100mL 500 mg In 100 ml @ 100 mls/hr IV Q8HR [facility] Rx #:[id number] Oral 350 Output: Urine 500 Active Medications: Current Medications Clonidine HCl (Catapres) 0.1 mg PO Q6HR PRN PRN Reason: HTN Stop: 11/22/16 19:28 Last Admin: 09/23/16 21:53 Dose: 0.1 mg Diclofenac Sodium (Voltaren) 75 mg PO BID [facility] Stop: 11/22/16 08:59 Last Admin: 09/26/16 09:16 Dose: 75 mg Enoxaparin Sodium (Lovenox) 30 mg SUBQ Q12HR [facility] Stop: 11/22/16 08:59 Last Admin: 09/26/16 09:03 Dose: 30 mg Hydromorphone HCl (Dilaudid) 1 mg IVP Q6HR PRN PRN Reason: Pain (Moderate) Stop: 11/20/16 15:54 Last Admin: 09/26/16 08:59 Dose: 1 mg Metronidazole (Flagyl) 500 mg in 100 mls @ 100 mls/hr IV Q8HR [facility] Stop: 11/21/16 05:59 Last Infusion: 09/26/16 06:26 Dose: Infused Sodium Chloride (Nacl 0.9%) 1,000 mls @ 100 mls/hr IV .Q10H [facility] Stop: 11/23/16 16:14 Last Admin: 09/26/16 05:31 Dose: 100 mls/hr Piperacillin Sod/Tazobactam (Sod 3.375 gm/ Sodium Chloride) 50 mls @ 100 mls/ hr IV Q6HR [facility] Stop: 11/25/16 11:59 Metoprolol Tartrate (Lopressor) 12.5 mg PO DAILY [facility] Stop: 11/22/16 15:59 Last Admin: 09/26/16 09:16 Dose: 12.5 mg Ondansetron HCl (Zofran) 4 mg IV Q6H PRN PRN Reason: Nausea / Vomiting Stop: 11/22/16 21:02 Last Admin: 09/23/16 21:55 Dose: 4 mg - Procedures Procedures: Procedures Procedure Code Date REMOVAL OF SMALL INTESTINE 34742 09/21/16 REPAIR ABDOMINAL WALL, OPEN APPROACH [id number] 09/21/16 RESECTION OF SMALL INTESTINE, OPEN APPROACH [id number] 09/21/16 RPR [facility] INIT BLOCK 44694 09/21/16 Nutritional Asmnt/Malnutr-PDOC - Dietary Evaluation Malnutrition Findings (Please click <Entered> for more info): Nutritional Asmnt/Malnutrition Start: 09/26/16 10: 53 Text: Status: Complete Freq: Document 09/26/16 10:53 [facility] (Rec: 09/26/16 11:06 [facility] [id number]) Nutritional Asmnt/Malnutrition Patient General Information Nutritional Screening Diagnosis Diagnosis Bowel obstruction Subjective Information Pt is a 81-year-old female admitted with chief complaint of incarcerated abdominal hernia. Exploratory with resection to small bowel with side to side anastomosis and repair of ventral hernia completed on 09/21. POD #5. RD attempted to visit pt twice, but pt declined nutrition interview due to nausea. Muscle and fat depletion suspected to triceps; RD unable to complete physical assessment for malnutrition. NGT to suction in place. Pt reports she is having a poor appetite, unable to verbalize whether she tolerates food. RD unable to verify wt via bedscale due to multiple medical devices on bed and pt hugging multiple pillows. Current Diet Order/ Nutrition Support Clear liquid (downgraded from full liquid on 09/25) Patient / S.O Can't verbalize diet edu Pertinent Medications Dilaudid, Flagyl, Zofran, Zosyn, NaCl 0.9% Pertinent Labs (09/26) BUN 27H, Creatinine 0.4L (decreased) Nutritional Hx/Data Height 1.52 m Height (Calculated Centimeters) 152.4 Current Weight (lbs) 51.71 kg Weight (Calculated Kilograms) 51.7 Weight (Calculated Grams) 35887.5 Pound Body Weight 100 % Pound Body Weight 114 Weight Status Approriate GI Symptoms GI Symptoms Nausea Food Allergies No Cultural/Ethnic/Druze Belief No preferences provided. Skin Integrity/Comment: Hal 15. Abdominal incision. Current %PO Negligible < 25% Estimated Nutritional Goals BEE in Kcals: Using Current wt Calories/Kcals/Kg Based on CBW 51.8 kg with consideration of geriatric pt s/p sx Kcals Calculated 0984-6297 kcals/day (30-35 kcals/kg) Protein: Using Current wt Protein g/kg: Based on CBW 51.8 kg with consideration of geriatric pt s/p sx Protein Calculated 52-67 gm/day (1-1.3 gm/kg) Fluid: ml 3550-4535 ml/day (1 ml/kcal) Nutritional Problem 1. Problem Problem Inadequate energy and protein intake related to Etiology poor appetite and low-nutrient dense foods provided as evidenced by Signs/Symptoms: PO intake 25% x 5 days and clear liquid diet does not meet estimated nutritional needs. Malnutrition Alert Food and Nutrition Intake (Severe) <50% est energy req 5days Is there a minimum of two criteria No selected? Query Text:Check all the applicable criteria. A minimum of two criteria are recommended for diagnosis of either severe or non-severe malnutrition. Malnutrition Related to Morbid Obesity Malnutrition related to morbid obesity No Intervention/Recommendation Recommendations by RD Protein supplementation Comments 1. Continue with clear liquid diet, as tolerated. Encourage oral intake. 2. Recommend Boost Breeze TID with meals to help meet estimated nutritional needs. 3. Advance as tolerated to soft/bland diet. Expected Outcomes/Goals Expected Outcomes/Goals Have pt meet at least 75% of estimated nutritional needs. Physician Parameters for PEM Normal Weight % 90% - 110% (Normal) Body Mass Index (BMI) 19 - 24 (Normal) Serum Albumin (g/dl) 2.4 - 3.0 (Moderate) 09/26/16 11:05 Dietitian Notes by Erica Hightower Nutrition Note Initial Nutrition Assessment completed by Erica Hightower on 09/26/16. Please refer to nutrition assessment under Patient Care tab of EMR. Nutrition Recommendations: 1. Continue with clear liquid diet, as tolerated. Encourage oral intake. 2. Recommend Boost Breeze TID with meals to help meet estimated nutritional needs. 3. Advance as tolerated to soft/bland diet. F/U in 2-3 days as High risk, 09/28-09/29. Initialized on 09/26/16 11:05 - END OF NOTE
--- NOTE | 2016-09-26 11:54 | Progress Notes ---
SUBJECTIVE: The patient was seen, chart reviewed, discussed with staff. The patient calm in med/surg unit, cooperative, full orientation still unable to utilize basic food, clothing, and senior living, still with _safety concerns from staff;___, cannot take care for herself. The patient per staff has been calm,, no agitation, no yelling or screaming episodes. She did sleep poorly last night, but otherwise no _SE from ___ medications. No distress. ASSESSMENT AND PLAN: The patient is calm, cooperative, however unable to care for basic needs. She will need help with placements JOB# [id number] JANETT
[2016-09-26] MEDS ORDERED: Fleet Enema 135 mL RC ONE (17:00)
--- NOTE | 2016-09-27 00:37 | Progress Notes ---
SUBJECTIVE: The patient was seen, chart reviewed, and discussed with staff. The patient was seen in her room, remains noncooperative, somewhat confused, unable to really take care of herself. The patient is in no acute distress. She does seem uncomfortable with the nasogastric tube. Sleeping interruptive. Denies overt pain symptoms. No yelling episodes. She has been amenable to care. ASSESSMENT AND PLAN: The patient is calm and cooperative, amenable to care. We will continue to monitor. The patient will likely need help with placement upon medical stabilization. JOB# [id number]
[2016-09-27] MEDS: metroNIDAZOLE 500mg/NS 100mL 500 MG/100 ML BAG IV SCH ×2 (06:20→12:40)
[2016-09-27 07:41] LABS: % BASOPHILS 0.1 % (0.0-2.0); % EOSINOPHILS 1.7 % (0.0-5.0); % LYMPHOCYTES 14.8 % (20.0-50.0); % MONOCYTES 7.8 % (2.0-10.0); % NEUTROPHILS 75.6 % (40.0-80.0); HEMATOCRIT 37.1 % (35.0-45.0); HEMOGLOBIN 12.6 gm/dL (11.7-16.1); MEAN CELL VOLUME 89.4 fl (81-100); MEAN CORPUSCULAR HEMOGLOBIN 30.4 pg (27.0-31.0); NEUTROPHILE ABSOLUTE 5.5 Th/cmm (1.8-8.0); PLATELET COUNT 352 Th/cmm (150-400); RED BLOOD COUNT 4.15 Mil/cmm (3.80-5.20); RED CELL DISTRIBUTION WIDTH 12.9 % (11.5-20.0)
[2016-09-27 07:46] LABS: WHITE BLOOD COUNT 7.3 Th/cmm (4.8-10.8)
[2016-09-27 07:57] LABS: ALB/GLOB RATIO 1.2 (1.0-1.8); ALKALINE PHOSPHATASE 48 U/L (34-104); BILIRUBIN,TOTAL 0.5 mg/dL (0.3-1.0); BUN - UREA NITROGEN 21 mg/dL (7-25); CALCIUM SERUM 8.1 mg/dL (8.6-10.3); CARBON DIOXIDE 20.7 mEq/L (21.0-31.0); CHLORIDE 111 mEq/L (98-107); CREATININE - SERUM 0.5 mg/dL (0.6-1.2); GLUCOSE 144 mg/dL (70-105); SGOT 19 U/L (13-39); SGPT/ALT 10 U/L (7-52); SODIUM SERUM 139 mEq/L (136-145)
--- NOTE | 2016-09-27 08:06 | General Progress Note ---
Subjective - Review of Systems Service Date: 09/27/16 Subjective: I fell better than yesterday Objective - Results Result Diagrams: 09/27/16 06:35 09/26/16 06:07 Recent Labs: Laboratory Last Values WBC 7.3 Th/cmm (4.8-10.8) D 09/27/16 06:35 RBC 4.15 Mil/cmm (3.80-5.20) 09/27/16 06:35 Hgb 12.6 gm/dL (11.7-16.1) 09/27/16 06:35 Hct 37.1 % (35.0-45.0) 09/27/16 06:35 MCV 89.4 fl (81-100) 09/27/16 06:35 MCH 30.4 pg (27.0-31.0) 09/27/16 06:35 MCHC Differential 34.0 pg (28.0-36.0) 09/27/16 06:35 RDW 12.9 % (11.5-20.0) 09/27/16 06:35 Plt Count 352 Th/cmm (150-400) 09/27/16 06:35 MPV 8.0 fl 09/27/16 06:35 Neutrophils % 75.6 % (40.0-80.0) 09/27/16 06:35 Band Neutrophils % 17 % (0-10) H 09/22/16 05:09 Lymphocytes % 14.8 % (20.0-50.0) L 09/27/16 06:35 Monocytes % 7.8 % (2.0-10.0) 09/27/16 06:35 Eosinophils % 1.7 % (0.0-5.0) 09/27/16 06:35 Basophils % 0.1 % (0.0-2.0) 09/27/16 06:35 Neutrophils (Manual) 79 % (40-80) 09/26/16 06:07 Lymphocytes 14 % (20-50) L 09/26/16 06:07 Monocytes 7 % (2-10) 09/26/16 06:07 Platelet Estimate ADEQUATE (NORMAL) 09/26/16 06:07 Platelet Morphology NORMAL (NORMAL) 09/26/16 06:07 RBC Morph Micro Appear NORMAL (NORMAL) 09/26/16 06:07 Sodium 141 mEq/L (136-145) 09/26/16 06:07 Potassium 3.8 mEq/L (3.5-5.1) 09/26/16 06:07 Chloride 113 mEq/L (98-107) H 09/26/16 06:07 Carbon Dioxide 16.0 mEq/L (21.0-31.0) L 09/26/16 06:07 Anion Gap 15.8 (7.0-16.0) 09/26/16 06:07 BUN 27 mg/dL (7-25) H 09/26/16 06:07 Creatinine 0.4 mg/dL (0.6-1.2) L 09/26/16 06:07 Est GFR ( Amer) TNP 09/26/16 06:07 Est GFR (Non-Af Amer) TNP 09/26/16 06:07 BUN/Creatinine Ratio 67.5 09/26/16 06:07 Glucose 85 mg/dL (70-105) 09/26/16 06:07 Calcium 8.7 mg/dL (8.6-10.3) 09/26/16 06:07 Total Bilirubin 0.5 mg/dL (0.3-1.0) 09/26/16 06:07 AST 15 U/L (13-39) 09/26/16 06:07 ALT 8 U/L (7-52) 09/26/16 06:07 Alkaline Phosphatase 56 U/L (34-104) 09/26/16 06:07 Total Protein 5.8 gm/dL (6.0-8.3) L 09/26/16 06:07 Albumin 3.0 gm/dL (3.7-5.3) L 09/26/16 06:07 Globulin 2.8 gm/dL 09/26/16 06:07 Albumin/Globulin Ratio 1.1 (1.0-1.8) 09/26/16 06:07 - Physical Exam Vitals and I&O: Vital Signs Temp 97.3 F 09/27/16 04:00 Pulse 83 09/27/16 04:00 Resp 20 09/27/16 04:00 BP 133/71 09/27/16 04:00 Pulse Ox 94 09/27/16 04:00 Intake & Output 09/26/16 09/27/16 09/27/16 18:59 06:59 18:59 Intake Total 1500 200 100 Balance 1500 200 100 Intake: Intake, IV Amount 1200 200 100 Piperacillin Sodium/ 100 100 Tazobact 3.375 gm In Sodium Chloride 0.9% 50 ml @ 100 mls/hr IV Q6HR [facility] Rx#:[id number] Sodium Chloride 0.9% 1, 1000 000 ml @ 100 mls/hr IV . Q10H [facility] Rx#:[id number] metroNIDAZOLE 500mg/NS 100 100 100 100mL 500 mg In 100 ml @ 100 mls/hr IV Q8HR [facility] Rx #:[id number] Oral 300 Active Medications: Current Medications Clonidine HCl (Catapres) 0.1 mg PO Q6HR PRN PRN Reason: HTN Stop: 11/22/16 19:28 Last Admin: 09/23/16 21:53 Dose: 0.1 mg Diclofenac Sodium (Voltaren) 75 mg PO BID [facility] Stop: 11/22/16 08:59 Last Admin: 09/26/16 17:06 Dose: 75 mg Enoxaparin Sodium (Lovenox) 30 mg SUBQ Q12HR [facility] Stop: 11/22/16 08:59 Last Admin: 09/26/16 22:12 Dose: 30 mg Hydromorphone HCl (Dilaudid) 1 mg IVP Q6HR PRN PRN Reason: Pain (Moderate) Stop: 11/20/16 15:54 Last Admin: 09/26/16 22:55 Dose: 1 mg Metronidazole (Flagyl) 500 mg in 100 mls @ 100 mls/hr IV Q8HR [facility] Stop: 11/21/16 05:59 Last Infusion: 09/27/16 07:20 Dose: Infused Sodium Chloride (Nacl 0.9%) 1,000 mls @ 100 mls/hr IV .Q10H [facility] Stop: 11/23/16 16:14 Last Admin: 09/26/16 22:12 Dose: 100 mls/hr Piperacillin Sod/Tazobactam (Sod 3.375 gm/ Sodium Chloride) 50 mls @ 100 mls/ hr IV Q6HR [facility] Stop: 11/25/16 11:59 Last Infusion: 09/27/16 06:24 Dose: Infused Metoprolol Tartrate (Lopressor) 12.5 mg PO DAILY [facility] Stop: 11/22/16 15:59 Last Admin: 09/26/16 09:16 Dose: 12.5 mg Ondansetron HCl (Zofran) 4 mg IV Q6H PRN PRN Reason: Nausea / Vomiting Stop: 11/22/16 21:02 Last Admin: 09/23/16 21:55 Dose: 4 mg General: Alert, Oriented x3, Cooperative, No acute distress HEENT: Atraumatic Neck: Supple Cardiovascular: Regular rate Lungs: Clear to auscultation Abdomen: Bowel sounds, Soft, Other (Passing gas) Extremities: Other (No edema) Neurological: Other (Non ambulatory) Skin: Other (Warm and dry) Psych/Mental Status: Mental status NL - Procedures Procedures: Procedures Procedure Code Date REMOVAL OF SMALL INTESTINE 99032 09/21/16 REPAIR ABDOMINAL WALL, OPEN APPROACH [id number] 09/21/16 RESECTION OF SMALL INTESTINE, OPEN APPROACH [id number] 09/21/16 RPR VEN[place]AL [place] INIT BLOCK 02591 09/21/16 Assessment/Plan - Assessment Assessment: Patient is awake, alert, calm. No lower extremities edema. BS better and passing gas. Diet change to full liquid. NG tube DC. Today WBC is normal. Dx : SBO, S/P incarcerated ventral hernia, Knee osteoarthrosis - Plan Plan: Patient will be transfer to [facility] under Dr. Gutiérrez. Nutritional Asmnt/Malnutr-PDOC - Dietary Evaluation Malnutrition Findings (Please click <Entered> for more info): Nutritional Asmnt/Malnutrition Start: 09/26/16 10: 53 Text: Status: Complete Freq: Document 09/26/16 10:53 [facility] (Rec: 09/26/16 11:06 [facility] [id number]) Nutritional Asmnt/Malnutrition Patient General Information Nutritional Screening Diagnosis Diagnosis Bowel obstruction Subjective Information Pt is a 81-year-old female admitted with chief complaint of incarcerated abdominal hernia. Exploratory with resection to small bowel with side to side anastomosis and repair of ventral hernia completed on 09/21. POD #5. RD attempted to visit pt twice, but pt declined nutrition interview due to nausea. Muscle and fat depletion suspected to triceps; RD unable to complete physical assessment for malnutrition. NGT to suction in place. Pt reports she is having a poor appetite, unable to verbalize whether she tolerates food. RD unable to verify wt via bedscale due to multiple medical devices on bed and pt hugging multiple pillows. Current Diet Order/ Nutrition Support Clear liquid (downgraded from full liquid on 09/25) Patient / S.O Can't verbalize diet edu Pertinent Medications Dilaudid, Flagyl, Zofran, Zosyn, NaCl 0.9% Pertinent Labs (09/26) BUN 27H, Creatinine 0.4L (decreased) Nutritional Hx/Data Height 1.52 m Height (Calculated Centimeters) 152.4 Current Weight (lbs) 51.71 kg Weight (Calculated Kilograms) 51.7 Weight (Calculated Grams) 45492.5 [place] Body Weight 100 % [place] Body Weight 114 Weight Status Approriate GI Symptoms GI Symptoms Nausea Food Allergies No Cultural/Ethnic/Congregation Belief No preferences provided. Skin Integrity/Comment: Hal 15. Abdominal incision. Current %PO Negligible < 25% Estimated Nutritional Goals BEE in Kcals: Using Current wt Calories/Kcals/Kg Based on CBW 51.8 kg with consideration of geriatric pt s/p sx Kcals Calculated 2088-6697 kcals/day (30-35 kcals/kg) Protein: Using Current wt Protein g/kg: Based on CBW 51.8 kg with consideration of geriatric pt s/p sx Protein Calculated 52-67 gm/day (1-1.3 gm/kg) Fluid: ml 8823-8510 ml/day (1 ml/kcal) Nutritional Problem 1. Problem Problem Inadequate energy and protein intake related to Etiology poor appetite and low-nutrient dense foods provided as evidenced by Signs/Symptoms: PO intake 25% x 5 days and clear liquid diet does not meet estimated nutritional needs. Malnutrition Alert Food and Nutrition Intake (Severe) <50% est energy req 5days Is there a minimum of two criteria No selected? Query Text:Check all the applicable criteria. A minimum of two criteria are recommended for diagnosis of either severe or non-severe malnutrition. Malnutrition Related to Morbid Obesity Malnutrition related to morbid obesity No Intervention/Recommendation Recommendations by RD Protein supplementation Comments 1. Continue with clear liquid diet, as tolerated. Encourage oral intake. 2. Recommend Boost Breeze TID with meals to help meet estimated nutritional needs. 3. Advance as tolerated to soft/bland diet. Expected Outcomes/Goals Expected Outcomes/Goals Have pt meet at least 75% of estimated nutritional needs. Physician Parameters for PEM Normal Weight % 90% - 110% (Normal) Body Mass Index (BMI) 19 - 24 (Normal) Serum Albumin (g/dl) 2.4 - 3.0 (Moderate) 09/26/16 11:05 Dietitian Notes by Erica Hightower Nutrition Note Initial Nutrition Assessment completed by Erica Hightower on 09/26/16. Please refer to nutrition assessment under Patient Care tab of EMR. Nutrition Recommendations: 1. Continue with clear liquid diet, as tolerated. Encourage oral intake. 2. Recommend Boost Breeze TID with meals to help meet estimated nutritional needs. 3. Advance as tolerated to soft/bland diet. F/U in 2-3 days as High risk, 09/28-09/29. Initialized on 09/26/16 11:05 - END OF NOTE
[2016-09-27 08:21] LABS: ANION GAP 10.2 (7.0-16.0)
[2016-09-27 08:22] LABS: POTASSIUM SERUM 2.9 mEq/L (3.5-5.1)
[2016-09-27] MEDS: Enoxaparin 30 mg/0.3 mL 0.3mL Syr SUBQ SCH (08:41)
[2016-09-27] MEDS: Diclofenac 75 mg Tab PO SCH (08:41)
[2016-09-27] MEDS ORDERED: KCL 20mEq/100mL Premix 20 MEQ/100 ML PIGGYBACK IV ONE (08:54)
[2016-09-27] MEDS ORDERED: Potassium Chloride 20 MEQ, Lidocaine 1% 20mL Vial 25 MG in Sodium Chloride 0.9% 250 ML IV ONE (08:56)
[2016-09-27] MEDS ORDERED: Potassium Chloride 40 MEQ, Lidocaine 1% 20mL Vial 25 MG in Sodium Chloride 0.9% 250 ML IV ONE (09:00)
[2016-09-27] MEDS ORDERED: Potassium Chloride 20 mEq ER Tab PO SCH (09:00)
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
== END 2016-09-27 13:30 | DRG 330 ==
LOC: MSI 14:40 → ICU 19:00 → TELE 09-22 18:24 → MSI 09-25 15:37
PROVIDERS: ADMIT General Practice; ATTEND General Practice
PROC: 0DT80ZZ Resection of Small Intestine, Open Approach (ICD-10-PCS; principal; 2016-09-21)
PROC: 0WQF0ZZ Repair Abdominal Wall, Open Approach (ICD-10-PCS; 2016-09-21)
PROC: 0DN80ZZ Release Small Intestine, Open Approach (ICD-10-PCS; 2016-09-21)
DX: K43.6 Other and unspecified ventral hernia with obstruction, without gangrene (principal); E44.1 Mild protein-calorie malnutrition; F03.90 Unspecified dementia, unspecified severity, without behavioral disturbance, psychotic disturbance, mood disturbance, and anxiety; M17.9 Osteoarthritis of knee, unspecified; Z68.22 Body mass index [BMI] 22.0-22.9, adult
CPT/HCPCS: 36415-UA; 71010-TC; 80053-TC; 85007-TC; 85025-TC; 85027-TC; 87070-90; 87075-90; 87205-90; 90799; 93005; 97530; J1170; J1650; J2001; J2250; J2405; J2543; J2704; J3480; J7030; X6206; Z7610